=== PATIENT | female | born 1935 | race Caucasian/White ===

== ENCOUNTER → 2023-10-24 17:39 | Outpatient (REF) | payer MEDICARE, OTHER, SELFPAY | LOC: HWRAD 17:39 | PROVIDERS: ATTENDING PHYSICIAN Physician Assistant Medical | DX: R05.1 Acute cough (principal) | CPT/HCPCS: 71046 ==

== ENCOUNTER 2023-10-28 19:35 | Inpatient (IN) | payer MEDICARE, OTHER, SELFPAY ==
[2023-10-28] VITALS (11 sets, daily range): BP systolic 71–195; BP diastolic 46–120; BMI 25.2; BMI 25.0
[2023-10-28 14:41] LABS: COVID-19 Antigen Negative (Negative)
--- NOTE | 2023-10-28 15:54 | ED.GENMED ---
History of Present Illness
<Gladis Garcia BOOSTER ASSEMBLER - Last Filed: 10/28/23 18:35>
General
Chief Complaint: Cold/Flu/URI Symptoms
Source: patient and family (Daughter at bedside)
Exam Limitations: none
Time Seen by Provider: 10/28/23 15:52
Nursing documentation reviewed up to this point in time: agreed with
Travel History
Have you had any contact with someone who has COVID-19?: No
Do you have any symptoms of coronavirus? Fever > 100 degrees, chills, cough, shortness of breath, sore throat, loss of taste or smell, muscle aches, or headache?: No
History of Present Illness
History of Present Illness:
88-year-old female from home with her daughter who is visiting her pst 4 days. Patient states 'I've been sick since 10/16.' Her illness started with sneezing and a runny nose, she went to urgent care, told she had a sinus infection and was put on
cefprozil 500 mg twice daily x 10 days, tomorrow will be her last day. Patient states she felt no better and 4 days ago saw her PCP Nati Hsieh who gave her a Z-Thong which she finished this morning. Overnight 5 days into 4 days ago she stumbled
in her bathroom and fell with no reported injury.
Daughter at bedside states she is usually very sharp and clear but now she keeps saying she cannot get her brain to function. She had a mild cough for the past few days. She called her PCP who told her to come in for blood work, CAT scan and a
urine test.
Patient denies chest pain or trouble breathing. Denies abdominal pain. Denies nausea or vomiting. Appetite has been poor and she has to force up to eat but she states she has been drinking well.
Past History
<Gladis Garcia BOOSTER ASSEMBLER - Last Filed: 10/28/23 18:35>
Past History
ED Past Medical History: Hypercholesterolemia and Other (Open-angle glaucoma both eyes)
Social History
Tobacco: Non-smoker
Alcohol: None
Living: alone
Review of Systems
<Gladis Garcia, BOOSTER ASSEMBLER - Last Filed: 10/28/23 18:35>
Review of Systems
Allergies reviewed?: Yes
All Other Systems: ROS reviewed and negative except as documented in HPI and ROS
Constitutional: Reports fatigue; Denies fever
EENT: Denies sore throat
Respiratory: Reports cough (Mild intermittent past few days); Denies trouble breathing
Cardiac: Denies chest pain, diaphoresis, palpitations or syncope
ABD/GI: Reports anorexia; Denies abdominal pain, nausea, vomiting, diarrhea, constipated, bloody stools or black stools
: Denies dysuria, frequency, difficulty voiding or urgency
Musculoskeletal: Reports back pain (chronic left mid to low back pain, takes Tylenol daily, PCP aware); Denies edema
Skin: Reports no symptoms
Neurological: Reports no symptoms
Phy Exam
<Gladis Garcia, BOOSTER ASSEMBLER - Last Filed: 10/28/23 18:35>
Physical Exam
Physical Exam:
GENERAL: No acute distress. A&Ox3.
CONSTITUTIONAL: Afebrile.
EYES: PERRL, conjunctivae normal
Neck: Supple
ENMT: moist mucus membranes, Pharynx nl
RESPIRATORY: Regular respirations, nonlabored, lungs clear.
CARDIOVASCULAR: Regular rate and rhythm, no murmurs, no rubs.
GI: Soft, nontender, normal BS
MUSCULOSKELETAL: Moves with ease. Well perfused.
SKIN: Warm, dry, pink
PSYCH: Normal mood and affect. Well kept, interactive and appropriate
NEUROLOGIC: Awake, alert and oriented. Speech clear. Strength equal throughout. No focal neurological deficits
Course
<Gladis Garcia, BOOSTER ASSEMBLER - Last Filed: 10/28/23 18:35>
Orders/Labs/Results
Orders:
Orders
10/28/23 14:20
COVID-19 Antigen Urgent
Source: Nasal Swab
Monotest Urgent
Comment: ADD ON
Influenza A+B Rapid Molecular Urgent
DASH Source: Nasal Swab
Specimen Description:
10/28/23 16:08
CT Head W/o Iv Contrast Urgent
Comment:
Reason For Exam: confusion
0.9% Sodium Chloride 500 ml [Nss] 500 ml IV BOLUS
10/28/23 16:21
CBC/With Diff [Complete Blood Count/With Diff] Urgent
Comprehensive Metabolic Panel Urgent
Serum Osmolality Urgent
Comment: ADD ON
10/28/23 16:26
Add On- LAB Urgent
Tests Added?: Monotest
10/28/23 17:00
Osmolality, Random Urine Urgent
Date Specimen was Collected: 10/28/23
Time Specimen was Collected: 16:53
Comment: ADD ON
Urinalysis Reflex To Culture Urgent
Date Specimen was Collected: 10/28/23
Time Specimen was Collected: 16:53
Urine Microscopic Reflex Cult Urgent
Urine Sodium Urgent
Date Specimen was Collected: 10/28/23
Time Specimen was Collected: 16:53
Comment: ADD ON
10/28/23 17:22
Add On- LAB Urgent
Tests Added?: Serum osmolality, Urine osmolality, Urine sodium
10/28/23 17:28
NEPHROLOGY CONSULT Urgent
Consulting Provider: Scout Feng
Was physician already notified: Yes
Reason for consult: Hyponatremia
10/28/23 17:53
3% Sodium Chloride 250 ml [Sodium Chloride 3%] 250 ml IV ONCE
10/28/23 18:17
Potassium Chloride [KCl] 40 meq PO NOW STA
10/28/23 19:05
Admit/Transfer Patient As Directed
Co-Sign Provider:
Level of Care: Inpatient admission
Assign to:: Telemetry
Physician / Group: demetris
Diagnosis: hyponatremia
Reason for Telemetry: Arrhythmia
Date to Stop Telemetry: 10/31/23
Time to Stop Telemetry: 11:00
Reason for Hospitalization: hyponatremia
Expected length of stay greater than two midnights?: Yes
ELOS- Estimated Length of Stay in days: 2
I certify the patient meets the requirements for IP care: Yes
10/28/23 19:06
Code Status As Directed
Resuscitation Status: Do not resuscitate
Reached after discussion with pt or family/Healthcare POA: Yes
DNR Bracelet Application ONCE
10/28/23 22:00
Basic Metabolic Panel Routine
10/31/23 11:00
DC Protocol for Telemetry ONCE
Abnormal Lab Results
10/28/23 10/28/23
16:21 17:00
MCH 32.8 H pg
(27.0-31.0)
MCHC 37.1 H g/dL
(33.0-37.0)
Abs Immat Gran (auto) 0.1 H 10^3/uL
(0-0.05)
Absolute Monos (auto) 0.9 H 10^3/uL
(0.1-0.6)
Immature Gran % 0.6 H %
(0-0.5)
Lymphocytes % 18.3 L %
(20.5-51.1)
Monocytes % 10.0 H %
(1.7-9.3)
Sodium 113 L* mmol/L
(135-145)
Potassium 3.0 L mmol/L
(3.5-5.1)
Chloride 72 L mmol/L
(98-107)
Carbon Dioxide 33 H mmol/L
(22-30)
BUN 26 H mg/dl
(7-17)
Creatinine 0.5 L mg/dL
(0.6-1.0)
Glucose 108 H mg/dl
(70-99)
Serum Osmolality 242 L mOsm/kg
(275-300)
AST 37 H U/L
(14-36)
ALT 41 H U/L
(0-35)
Urine Ketones 1+ A
(Negative)
Ur Occult Blood Reflex Trace A
(Negative)
Leukocyte Esterase Rfl Trace A
(Negative)
Urine RBC 3-6 A /HPF
(0-2)
Urine Bacteria (Reflex) Few A
(Negative)
Urine Sodium 16 L mmol/L
(30-90)
10/28/23 16:21
10/28/23 16:21
Vital Signs
Initial and Last Documented VS:
Initial Vital Signs
Temp Pulse Resp BP Pulse Ox
98.3 F 73 18 165/99 96
10/28/23 14:05 10/28/23 14:05 10/28/23 14:05 10/28/23 14:05 10/28/23 14:05
Last Documented Vital Signs
Temp Pulse Resp BP Pulse Ox
98.3 F 76 14 109/70 95
10/28/23 14:05 10/28/23 20:15 10/28/23 20:15 10/28/23 19:26 10/28/23 20:15
Drying Supervisor consulted with Physician
Drying Supervisor consulted with physician?: Yes
Name of Physician Consulted: Nathalia
<Jerry Sloan, DO - Last Filed: 10/28/23 20:37>
Orders/Labs/Results
Orders:
Orders
10/28/23 14:20
COVID-19 Antigen Urgent
Source: Nasal Swab
Monotest Urgent
Comment: ADD ON
Influenza A+B Rapid Molecular Urgent
DASH Source: Nasal Swab
Specimen Description:
10/28/23 16:08
CT Head W/o Iv Contrast Urgent
Comment:
Reason For Exam: confusion
0.9% Sodium Chloride 500 ml [Nss] 500 ml IV BOLUS
10/28/23 16:21
CBC/With Diff [Complete Blood Count/With Diff] Urgent
Comprehensive Metabolic Panel Urgent
Serum Osmolality Urgent
Comment: ADD ON
10/28/23 16:26
Add On- LAB Urgent
Tests Added?: Monotest
10/28/23 17:00
Osmolality, Random Urine Urgent
Date Specimen was Collected: 10/28/23
Time Specimen was Collected: 16:53
Comment: ADD ON
Urinalysis Reflex To Culture Urgent
Date Specimen was Collected: 10/28/23
Time Specimen was Collected: 16:53
Urine Microscopic Reflex Cult Urgent
Urine Sodium Urgent
Date Specimen was Collected: 10/28/23
Time Specimen was Collected: 16:53
Comment: ADD ON
10/28/23 17:22
Add On- LAB Urgent
Tests Added?: Serum osmolality, Urine osmolality, Urine sodium
10/28/23 17:28
NEPHROLOGY CONSULT Urgent
Consulting Provider: Scout Feng
Was physician already notified: Yes
Reason for consult: Hyponatremia
10/28/23 17:53
3% Sodium Chloride 250 ml [Sodium Chloride 3%] 250 ml IV ONCE
10/28/23 18:17
Potassium Chloride [KCl] 40 meq PO NOW STA
10/28/23 19:05
Admit/Transfer Patient As Directed
Co-Sign Provider:
Level of Care: Inpatient admission
Assign to:: Telemetry
Physician / Group: demetris
Diagnosis: hyponatremia
Reason for Telemetry: Arrhythmia
Date to Stop Telemetry: 10/31/23
Time to Stop Telemetry: 11:00
Reason for Hospitalization: hyponatremia
Expected length of stay greater than two midnights?: Yes
ELOS- Estimated Length of Stay in days: 2
I certify the patient meets the requirements for IP care: Yes
10/28/23 19:06
Code Status As Directed
Resuscitation Status: Do not resuscitate
Reached after discussion with pt or family/Healthcare POA: Yes
DNR Bracelet Application ONCE
10/28/23 22:00
Basic Metabolic Panel Routine
10/31/23 11:00
DC Protocol for Telemetry ONCE
Abnormal Lab Results
10/28/23 10/28/23
16:21 17:00
MCH 32.8 H pg
(27.0-31.0)
MCHC 37.1 H g/dL
(33.0-37.0)
Abs Immat Gran (auto) 0.1 H 10^3/uL
(0-0.05)
Absolute Monos (auto) 0.9 H 10^3/uL
(0.1-0.6)
Immature Gran % 0.6 H %
(0-0.5)
Lymphocytes % 18.3 L %
(20.5-51.1)
Monocytes % 10.0 H %
(1.7-9.3)
Sodium 113 L* mmol/L
(135-145)
Potassium 3.0 L mmol/L
(3.5-5.1)
Chloride 72 L mmol/L
(98-107)
Carbon Dioxide 33 H mmol/L
(22-30)
BUN 26 H mg/dl
(7-17)
Creatinine 0.5 L mg/dL
(0.6-1.0)
Glucose 108 H mg/dl
(70-99)
Serum Osmolality 242 L mOsm/kg
(275-300)
AST 37 H U/L
(14-36)
ALT 41 H U/L
(0-35)
Urine Ketones 1+ A
(Negative)
Ur Occult Blood Reflex Trace A
(Negative)
Leukocyte Esterase Rfl Trace A
(Negative)
Urine RBC 3-6 A /HPF
(0-2)
Urine Bacteria (Reflex) Few A
(Negative)
Urine Sodium 16 L mmol/L
(30-90)
10/28/23 16:21
10/28/23 16:21
Vital Signs
Initial and Last Documented VS:
Initial Vital Signs
Temp Pulse Resp BP Pulse Ox
98.3 F 73 18 165/99 96
10/28/23 14:05 10/28/23 14:05 10/28/23 14:05 10/28/23 14:05 10/28/23 14:05
Last Documented Vital Signs
Temp Pulse Resp BP Pulse Ox
98.3 F 76 14 109/70 95
10/28/23 14:05 10/28/23 20:15 10/28/23 20:15 10/28/23 19:26 10/28/23 20:15
<Gladis Garcia, BOOSTER ASSEMBLER - Last Filed: 10/28/23 18:35>
MDM/Problems Addressed
Differential Diagnosis Includes:
Dehydration, UTI, viral illness, dementia
MDM/Problems Addressed:
88-year-old female from home with her daughter who is visiting her pst 4 days. Patient states 'I've been sick since 10/16.' Her illness started with sneezing and a runny nose, she went to urgent care, told she had a sinus infection and was put on
cefprozil 500 mg twice daily x 10 days, tomorrow will be her last day. Patient states she felt no better and 4 days ago saw her PCP Nati Hsieh who gave her a Z-Thong which she finished this morning. Overnight 5 days into 4 days ago she stumbled
in her bathroom and fell with no reported injury.
Daughter at bedside states she is usually very sharp and clear but now she keeps saying she cannot get her brain to function. She had a mild cough for the past few days. She called her PCP who told her to come in for blood work, CAT scan and a
urine test.
Reviewed out pt CXR from 10/24: NAD
Patient denies chest pain or trouble breathing. Denies abdominal pain. Denies nausea or vomiting. Appetite has been poor and she has to force up to eat but she states she has been drinking well.
Afebrile
10/28/2023 1624 PM
COVID test negative
Influenza negative
10/28/2023 1716 PM
CBC with no clinically significant abnormality
CMP: Sodium is 113. Potassium 3.0, chloride 72, BUN 26, bicarb 33
U/A neg
10/28/[address] Feng nephrology consulted and will be down
Hospitalist notified of admission
Results discussed with patient and her daughter.
<Gladis Garcia, BOOSTER ASSEMBLER - Last Filed: 10/28/23 18:35>
*Critical Care Note
Total Time (30-74mins, 75-104mins- exclusive of procedures): Not Applicable
ED Attending Note
<Gladis Garcia, BOOSTER ASSEMBLER - Last Filed: 10/28/23 18:35>
-
Portions of this chart may have been created with voice recognition software.� Occasional wrong word or��sound alike� substitutions may have occurred due to the inherent limitations of voice recognition software.
<Jerry Sloan DO - Last Filed: 10/28/23 20:37>
ED Attending Note
I performed the substantive portion of visit, reviewed & personally made and approve the management plan that is documented in note by myself or RAYMOND.: Yes
ED Attending Note:
I have reviewed and agree with history and treatment plan by Celsa garcia. Patient received 3% normal saline. Seen by Dr. Feng, nephrology.
Discharge Plan
Departure
Patient Disposition: Admit
Date of Disposition: 10/28/23
Time of Disposition: 17:29
Admit to: ICU
Presentation/result/management discussed w/ accepting MD/DO: Hospitalist
Condition: Fair
Discharge Problem:
Acute hyponatremia
Interventions
Interventions:
*Risk Screen - Suicide Last Done: 10/28/23 14:08
*General Assessment Last Done: 10/28/23 14:08
*Neglect/Abuse Screening Last Done: 10/28/23 14:08
ED- Fall Risk Assessment Last Done: 10/28/23 16:29
*ED COVID-19 Vaccine History Last Done: 10/28/23 14:08
ED- Pulmonary Assessment Last Done: 10/28/23 16:29
[2023-10-28] MEDS: NSS 500 IV ×2 (16:21→20:52)
[2023-10-28 16:37] LABS: % Basophils 0.1 % (0-2); % Eosinophils 0.7 % (0-6); % Immature Granulocytes 0.6 % (0-0.5); % Lymphocytes 18.3 % (20.5-51.1); % Neutrophils 70.3 % (42.2-75.2); Absolute Eosinophils 0.1 10^3/uL (0-0.7); Absolute Immature Granulocytes 0.1 10^3/uL (0-0.05); Absolute Lymphocytes 1.7 10^3/uL (1.2-3.4); Absolute Monocytes 0.9 10^3/uL (0.1-0.6); Absolute Neutrophils 6.3 10^3/uL (1.4-6.5); Hematocrit 39.1 % (37.0-47.0); Hemoglobin 14.5 g/dL (12.0-16.0); Mean Corp Hgb Conc. 37.1 g/dL (33.0-37.0); Mean Corpuscular Hgb 32.8 pg (27.0-31.0); Mean Corpuscular Volume 88.5 fL (81.0-99.0); Mean Platelet Volume 10.2 fL (7.4-10.4); Nucleated Red Blood Cells % 0 %; Platelet Count 143 10^3/uL (130-400); Red Blood Cell Count 4.42 10^6/uL (4.20-5.40); Red Cell Dist. Width 12.7 % (11.5-14.5)
[2023-10-28 16:51] LABS: ALT (SGPT) 41 U/L (0-35); AST (SGOT) 37 U/L (14-36); Albumin 4.1 g/dl (3.5-5.0); Alkaline Phosphatase 105 U/L (38-126); Blood Urea Nitrogen 26 mg/dl (7-17); Calcium 9.2 mg/dl (8.4-10.2); Carbon Dioxide 33 mmol/L (22-30); Chloride 72 mmol/L (98-107); Estimated Creatinine Clearance 50 ml/min; Glucose 108 mg/dl (70-99); Sodium 113 mmol/L (135-145); Total Protein 7.2 g/dl (6.3-8.2); eGFR > 60.00
[2023-10-28 17:08] LABS: Urine Albumin Negative (Neg - Trace); Urine Bilirubin Negative (Negative); Urine Character Clear (Clear); Urine Color Yellow; Urine Glucose Negative (Negative); Urine Ketone 1+ (Negative); Urine Leukocyte Trace (Negative); Urine Nitrite Negative (Negative); Urine Occult Blood Trace (Negative); Urine Urobilinogen Negative (Neg - 1+)
[2023-10-28 17:24] LABS: Urine Bacteria Few (Negative)
[2023-10-28 17:47] LABS: Osmolality Urine 333 mOsm/kg (300-900)
--- NOTE | 2023-10-28 17:47 | W.CON.NEPH ---
Consultation
-
Date/Time Consultation Requested: October 28, 2023 1700
Date/Time Consultation Performed: October 28, 2023 1748
Requesting Provider: Dr. Hernandez
Performing Provider: Dr. Feng
Reason for Consultation: hyponatremia
Medical History
-
Chief Complaint: Hyponatremia
History of Present Illness:
88-year-old female with hyperlipidemia on statin therapy who has not felt well since October 16. This began with upper respiratory symptoms including a runny nose as well as sneezing. She went to an urgent care clinic was diagnosed with a sinus
infection and placed on antibiotics. She had not improved and so saw her primary care physician 4 days ago and was given a Z-Thong. She still has not improved. She fell in her bathroom recently. Her daughter became more concerned because her
mental status began to flag. As result, she was sent to the emergency room for evaluation here she was found to have a sodium level of 113. She seems to have a mild hyponatremia in the past though typically above 130. Her appetite has been poor
as well during this timeframe though she reports that her fluid intake has been fine.
Past Medical History
Hyperlipidemia, glaucoma, osteoporosis, cataracts, tonsillectomy, bilateral hip replacement, left lower leg vein stripping, right distal radial fracture.
Social History
No tobacco or alcohol.
Tobacco: Non-Smoker
Alcohol: None
Family History
Throat cancer in father, lung cancer as well as cervical cancer in sisters.
Allergies / Home Medications
Allergy/AdvReac Type Severity Reaction Status Date / Time
naproxen sodium [From Aleve] Allergy Facial Verified 10/28/23 14:04
Swelling
Environmental Allergy runny Uncoded 07/18/16 08:13
nose,
sneezing
Medication Instructions Recorded Confirmed Type
atorvastatin 10 mg tablet 10 mg PO QPM 12/01/15 10/28/23 History
calcium carbonate 600 mg-vitamin 1 ea PO DAILY 12/01/15 10/28/23 History
D3 10 mcg (400 unit) tablet
(Calcium 600 + D(3))
acetaminophen 500 mg tablet 1,000 mg PO Q6H 06/20/16 10/28/23 History
(Tylenol Extra Strength)
vitamin E (dl, acetate) 180 mg 400 units PO DAILY 06/20/16 10/28/23 History
(400 unit) capsule
docusate sodium 100 mg capsule 100 mg PO BID ##0 07/20/16 10/28/23 Rx
cefprozil 500 mg tablet 500 mg PO BID 10/28/23 10/28/23 History
cranberry 400 mg capsule 800 mg PO BID 10/28/23 10/28/23 History
ginkgo biloba 40 mg tablet 40 mg PO DAILY 10/28/23 10/28/23 History
glucosamine-chondroitin 250 mg-200 1 tab PO DAILY 10/28/23 10/28/23 History
mg tablet (Osteo Bi-Flex)
latanoprostene bunod 0.024 % eye 1 drp BOTH EYES QPM 10/28/23 10/28/23 History
drops (Vyzulta)
loratadine 10 mg tablet 10 mg PO HSPRN PRN ALLERGY 10/28/23 10/28/23 History
multivitamin with minerals 1 tab PO DAILY 10/28/23 10/28/23 History
(Hair,Skin and Nails tablet)
therapeutic multivitamin 1 tab PO DAILY 10/28/23 10/28/23 History
Review of Systems
-
No chest pain or shortness of breath. Appetite slowly improving. No issues with urine output. Sinus issues as above. The remainder of the complete review of systems was negative.
Physical Exam
Vital Signs
Vital Signs
Temp Pulse Resp BP Pulse Ox
98.3 F 73 18 158/98 100
10/28/23 14:05 10/28/23 14:05 10/28/23 14:05 10/28/23 17:07 10/28/23 17:07
Lab Results
WBC 9.0 10^3/uL (4.8-10.8) 10/28/23 16:21
RBC 4.42 10^6/uL (4.20-5.40) 10/28/23 16:21
Hgb 14.5 g/dL (12.0-16.0) 10/28/23 16:21
Hct 39.1 % (37.0-47.0) 10/28/23 16:21
Plt Count 143 10^3/uL (130-400) 10/28/23 16:21
Sodium 113 mmol/L (135-145) L* 10/28/23 16:21
Potassium 3.0 mmol/L (3.5-5.1) L 10/28/23 16:21
Chloride 72 mmol/L (98-107) L 10/28/23 16:21
Carbon Dioxide 33 mmol/L (22-30) H 10/28/23 16:21
BUN 26 mg/dl (7-17) H 10/28/23 16:21
Creatinine 0.5 mg/dL (0.6-1.0) L 10/28/23 16:21
eGFR > 60.00 10/28/23 16:21
Glucose 108 mg/dl (70-99) H 10/28/23 16:21
Calcium 9.2 mg/dl (8.4-10.2) 10/28/23 16:21
Albumin 4.1 g/dl (3.5-5.0) 10/28/23 16:21
Physical Exam
General: AOx3
HEENT: PERRL, EOMI, Oropharynx Clear/Moist, Neck Supple, Trachea Midline and No Thyromegaly
Respiratory: Clear
Abdomen: Soft, Nontender, Nondistended, Normal Bowel Sounds and No Hepatosplenomegaly
Skin: No Rash and Normal Turgor
Psych: Mood/afflect pleasant and Insight/judgement good
Assessment/Plan
-
Assessment
-hyponatremia
-hyperlipidemia
-HTN
-hypokalemia
-metabolic alkalosis
-URI
Plan
-3%NaCl tonight
-serial BMP
-await urine studies
-suspect this will be infection + solute/solvent mismatch
-replete K
-d/w pt and her two daughters (one on phone)
Data Reviewed
-
Radiology: Image Personally Visualized and interpreted (Chest x-ray on 10/24/2023 by my reading shows no active disease)
Labs: Labs Reviewed by me
Old Records: Reviewed (On September 05, 2023 sodium 132, on November 29, 2020 sodium 132)
[2023-10-28 17:57] LABS: Urine Sodium 16 mmol/L (30-90)
[2023-10-28] MEDS: SODIUM CHLORIDE 3% 250 IV (18:10)
--- NOTE | 2023-10-28 18:10 | HPS.HSE ---
Family Physician
-
Family Physician: Nati Hsieh PA-C
Chief Complaint
-
confusion
History of Present Illness
88-year-old female with past medical history of osteoarthritis, hyperlipidemia, glaucoma, presenting from home with her daughter. Patient states that she has been sick since 10/16. Her illness started with cough, sneezing and runny nose and went to
urgent care and told she had a sinus infection and was started on cefprozil for 10 days, tomorrow will be her last day. She felt no better in 4 days ago saw her primary care physician Nati Hsieh who gave her a Z-Thong which she finished this
morning. Her respiratory symptoms are currently improved. Cough is very intermittent. Runny nose has improved. 5 days ago she stumbled in her bathroom and fell with bruising to right hip.
Daughter states that patient is usually very sharp and clear but now her brain has since been confuse.she has been off balance. No numbness or tingling. No headache or blurry vision. Her primary care physician told her to come into the hospital.
No history of hyponatremia. She has been drinking 2-1/2 quart of fluids every day without much salt intake
Patient denies any chest pain or shortness of breath. Denies any abdominal pain. Denies any nausea or vomiting. Appetite has been poor but she has been drinking well.
Medical History
Past Medical History
Past Medical History: Reports Other (osteoarthritis, hyperlipidemia, glaucoma)
Past Surgical History: Reports None
Social History
Tobacco: Non-smoker
Alcohol: None
Drug: None
Family History
Family History: Not pertinent
Allergies / Home Medications
Allergies reflects when Allergies were last updated in [facility].
Home Medications with original date entered in [facility]
Allergy/Medication List:
Allergies
Allergy/AdvReac Type Severity Reaction Status Date / Time
naproxen sodium [From Aleve] Allergy Facial Verified 10/28/23 14:04
Swelling
Environmental Allergy runny Uncoded 07/18/16 08:13
nose,
sneezing
Home Medications
atorvastatin 10 mg tablet 10 mg PO QPM 12/01/15
calcium carbonate 600 mg-vitamin D3 10 mcg (400 unit) tablet (Calcium 600 + D(3)) 1 ea PO DAILY 12/01/15
acetaminophen 500 mg tablet (Tylenol Extra Strength) 1,000 mg PO Q6H 06/20/16
vitamin E (dl, acetate) 180 mg (400 unit) capsule 400 units PO DAILY 06/20/16
docusate sodium 100 mg capsule 100 mg PO BID ##0 07/20/16
cefprozil 500 mg tablet 500 mg PO BID 10/28/23
cranberry 400 mg capsule 800 mg PO BID 10/28/23
ginkgo biloba 40 mg tablet 40 mg PO DAILY 10/28/23
glucosamine-chondroitin 250 mg-200 mg tablet (Osteo Bi-Flex) 1 tab PO DAILY 10/28/23
latanoprostene bunod 0.024 % eye drops (Vyzulta) 1 drp BOTH EYES QPM 10/28/23
loratadine 10 mg tablet 10 mg PO HSPRN PRN ALLERGY 10/28/23
multivitamin with minerals (Hair,Skin and Nails tablet) 1 tab PO DAILY 10/28/23
therapeutic multivitamin 1 tab PO DAILY 10/28/23
Review of Systems
-
History Source: Patient
A 12 point ROS was completed and negative except as noted: Yes
Constitutional: Reports No Symptoms
EENT: Reports No Symptoms
Respiratory: Reports See HPI
Cardiac: Reports No Symptoms
Abdomen/GI: Reports No Symptoms
: Reports No Symptoms
Musculoskeletal: Reports No Symptoms
Skin: Reports No Symptoms
Neurological: Reports No Symptoms
Endocrine: Reports No Symptoms
Hematologic/Lymphatic: Reports No Symptoms
Psych: Reports No Symptoms
Physical Exam
Vital Signs
Vital Signs
Temp Pulse Resp BP Pulse Ox
98.3 F 73 18 158/98 100
10/28/23 14:05 10/28/23 14:05 10/28/23 14:05 10/28/23 17:07 10/28/23 17:07
Physical Exam
General: Well Developed, Well Nourished and No Apparent Distress
HEENT: NormoCephalic, Moist mucous membranes and Atraumatic
Respiratory: Clear
Cardiac: S1/S2 and Regular Rhythm; No Murmur or Rub
GI: Soft, Non Tender, Non Distended and Normal Bowel Sounds; No Organomegaly
Rectal: Deferred by Provider
Musculoskeletal: No Clubbing, No Cyanosis and No Edema
Skin: No Rash
Neuro: Nonfocal/grossly intact
Laboratory Results
-
10/28/23 16:21
Laboratory Results
Total Bilirubin 1.0 mg/dl (0.2-1.3) 10/28/23 16:21
AST 37 U/L (14-36) H 10/28/23 16:21
ALT 41 U/L (0-35) H 10/28/23 16:21
Alkaline Phosphatase 105 U/L (38-126) 10/28/23 16:21
Data Reviewed
-
Lab Data: Labs Reviewed by me
Old Records: Reviewed
Impression/Plan
-
IMPRESSION:
PLAN:
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
-Check urine sodium, osmolality,
-CT head no acute abnormality
-3% hypertonic saline
-Nephrology consulted
# Resolving URI
-Last day of cefprozil tomorrow
# Hypokalemia
- replete potassium
# Mild transaminitis likely due to antibiotic
-Continue to monitor
Osteoarthritis
Hyperlipidemia
-Continue statin
Glaucoma
DNR/DNI
DVT prophylaxis�heparin
Regular diet
[2023-10-28 18:11] LABS: Osmolality Serum 242 mOsm/kg (275-300)
[2023-10-28] MEDS: KCL 40 MEQ PO (19:00)
[2023-10-28 20:55] LABS: Monotest Negative (Negative)
[2023-10-28 22:09] LABS: Blood Urea Nitrogen 23 mg/dl (7-17); Calcium 7.6 mg/dl (8.4-10.2); Carbon Dioxide 28 mmol/L (22-30); Chloride 80 mmol/L (98-107); Estimated Creatinine Clearance 50 ml/min; Glucose 74 mg/dl (70-99); Potassium 3.2 mmol/L (3.5-5.1); Sodium 115 mmol/L (135-145); eGFR > 60.00
--- NOTE | 2023-10-28 22:48 | PTCARENOTE ---
Received pt from ED RN. Pt walked from the stretcher w/ RW to our bed. Pt is AAOx3, confused @ times. NSR on the monitor. On RA O2 sat 96%, lungs clear. BRP x1 assist, abd round/soft, poor appetite. Bruise on right hip, from previous fall at home.
3% infusing @ 20 ml/hr. Bed alarm in place. CHG bath provided. Pt is laying comfortable in bed with call briscoe in reach.
[2023-10-28] MEDS: TYLENOL 1000 MG PO (23:07)
[2023-10-28] MEDS: CEFTIN 500 MG PO (23:07)
[2023-10-28] MEDS: COLACE 100 MG PO (23:08)
[2023-10-28] MEDS: HEPARIN 5000 UNITS SC (23:08)
[2023-10-29] VITALS (12 sets, daily range): BP systolic 93–133; BP diastolic 58–82
[2023-10-29] MEDS: TYLENOL 1000 MG PO ×3 (04:14→21:44)
[2023-10-29 05:09] LABS: ALT (SGPT) 37 U/L (0-35); AST (SGOT) 39 U/L (14-36); Albumin 3.6 g/dl (3.5-5.0); Alkaline Phosphatase 85 U/L (38-126); Blood Urea Nitrogen 20 mg/dl (7-17); Calcium 8.3 mg/dl (8.4-10.2); Carbon Dioxide 26 mmol/L (22-30); Chloride 91 mmol/L (98-107); Estimated Creatinine Clearance 50 ml/min; Glucose 88 mg/dl (70-99); Potassium 3.6 mmol/L (3.5-5.1); Sodium 119 mmol/L (135-145); Total Bilirubin 1.1 mg/dl (0.2-1.3); Total Protein 6.4 g/dl (6.3-8.2); eGFR > 60.00
[2023-10-29 06:07] LABS: % Basophils 0.4 % (0-2); % Eosinophils 1.1 % (0-6); % Immature Granulocytes 0.7 % (0-0.5); % Lymphocytes 26.6 % (20.5-51.1); % Neutrophils 62.2 % (42.2-75.2); Absolute Eosinophils 0.1 10^3/uL (0-0.7); Absolute Immature Granulocytes 0.1 10^3/uL (0-0.05); Absolute Lymphocytes 1.9 10^3/uL (1.2-3.4); Absolute Monocytes 0.6 10^3/uL (0.1-0.6); Absolute Neutrophils 4.4 10^3/uL (1.4-6.5); Hematocrit 36.4 % (37.0-47.0); Hemoglobin 13.7 g/dL (12.0-16.0); Mean Corp Hgb Conc. 37.6 g/dL (33.0-37.0); Mean Corpuscular Hgb 32.8 pg (27.0-31.0); Mean Corpuscular Volume 87.1 fL (81.0-99.0); Nucleated Red Blood Cells % 0 %; Platelet Count 141 10^3/uL (130-400); Red Blood Cell Count 4.18 10^6/uL (4.20-5.40); Red Cell Dist. Width 12.6 % (11.5-14.5); White Blood Cell Count 7.1 10^3/uL (4.8-10.8)
[2023-10-29] MEDS: OSCAL 500 + D 500 MG PO (08:19)
[2023-10-29] MEDS: VITAMIN E 400 UNITS PO (08:19)
[2023-10-29] MEDS: CEFTIN 500 MG PO ×2 (08:19→20:08)
[2023-10-29] MEDS: COLACE 100 MG PO (08:20)
[2023-10-29] MEDS: HEPARIN 5000 UNITS SC ×2 (08:20→20:08)
[2023-10-29] MEDS: THERAGRAN 1 TABLET PO (08:20)
--- NOTE | 2023-10-29 11:52 | W.PN.NEPH.PH ---
Today's Communication / Plan
-
3%
Assessment/Plan
-
Assessment
-hyponatremia
-hyperlipidemia
-HTN
-hypokalemia
-metabolic alkalosis
-URI
Plan
-3%NaCl again
-serial BMP
-replete K prn
-
-
Date of Service: October 29, 2023
CC / HPI / ROS
-
Chief Complaint:
hyponatremia
History of Present Illness:
Na up to 119 with 3%
BP stable
K better after repletion 3.6
Review of Systems:
no CP/SOB
Labs
-
Labs:
WBC 7.1 10^3/uL (4.8-10.8) 10/29/23 04:25
RBC 4.18 10^6/uL (4.20-5.40) L 10/29/23 04:25
Hgb 13.7 g/dL (12.0-16.0) 10/29/23 04:25
Hct 36.4 % (37.0-47.0) L 10/29/23 04:25
Plt Count 141 10^3/uL (130-400) 10/29/23 04:25
Sodium 119 mmol/L (135-145) L* 10/29/23 04:25
Potassium 3.6 mmol/L (3.5-5.1) 10/29/23 04:25
Chloride 91 mmol/L (98-107) L 10/29/23 04:25
Carbon Dioxide 26 mmol/L (22-30) 10/29/23 04:25
BUN 20 mg/dl (7-17) H 10/29/23 04:25
Creatinine 0.5 mg/dL (0.6-1.0) L 10/29/23 04:25
eGFR > 60.00 10/29/23 04:25
Glucose 88 mg/dl (70-99) 10/29/23 04:25
Calcium 8.3 mg/dl (8.4-10.2) L 10/29/23 04:25
Albumin 3.6 g/dl (3.5-5.0) 10/29/23 04:25
Physical Exam
-
Vital Signs:
Vital Signs
Temp Pulse Resp BP Pulse Ox
97.8 F 62 14 128/74 97
10/29/23 08:00 10/29/23 06:00 10/29/23 06:00 10/29/23 06:00 10/29/23 06:00
Cardiovascular:: Regular rate and rhythm
Respiratory:: Bilateral: Coarse
Lung Excursion:: Normal
Abdomen:: Nontender and Soft
Bowel Sounds:: Normal
Extremity Edema:: +1: Bilateral:
--- NOTE | 2023-10-29 12:01 | CM ---
Cm met with pt bedside
[place] in [place] apartment at [facility]
Pt notes independence at baseline typically without a WW
Has been needing to utilize her WW prior to admission
Pt has hx with [facility]
PCP- Nati Hsieh
Rx- Lola Anguiano
Pt in IMU
TT/Dr Howard requesting PT/OT orders as weakness noted
Discharge Disposition- home likely with [facility]N, follow for higher needs
[2023-10-29] MEDS: ZOSTRIX 0.025% CREAM 1 APPLIC TOPICAL (12:34)
[2023-10-29] MEDS: SODIUM CHLORIDE 3% 250 IV (12:57)
[2023-10-29] MEDS: TYLENOL PO (16:49)
[2023-10-29 16:56] LABS: Blood Urea Nitrogen 23 mg/dl (7-17); Calcium 8.5 mg/dl (8.4-10.2); Carbon Dioxide 31 mmol/L (22-30); Chloride 88 mmol/L (98-107); Estimated Creatinine Clearance 50 ml/min; Glucose 88 mg/dl (70-99); Potassium 3.4 mmol/L (3.5-5.1); Sodium 122 mmol/L (135-145); eGFR > 60.00
--- NOTE | 2023-10-29 17:14 | PTCARENOTE ---
Rec'd pt this AM. OOB x1 assist to the bathroom. Vital signs stable. Sodium slowly rising with 3% NS infusion. Dr. Feng updated via TT on most recent labs. family at bedside.
--- NOTE | 2023-10-29 17:27 | W.PN.HOSP.TC ---
Today's Communication/Plan
-
follow BMP
stop Ceftin
Assessment / Plan
Assessment / Plan
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
confusion, noted on admission, markedly reduced
-Check urine sodium, osmolality,
-CT head no acute abnormality
-3% hypertonic saline ordered again today by nephro
-Nephrology consulted
Na 113-->115-->119-->122
# Resolving URI
-Last day of cefuroxime today
# Hypokalemia
- replete potassium
better
# Mild transaminitis likely due to antibiotic
-Continue to monitor
Osteoarthritis
Hyperlipidemia
-Continue statin
Glaucoma
DNR/DNI
DVT prophylaxis�heparin
Regular diet
potential transfer [facility] tomorrow based on Na
Anticipated Discharge: 24 - 48 hours
Subjective/Interval History
-
Date of Service: October 29, 2023
Awake, alert, answering questions
Objective Data
-
Labs:
Laboratory Results
10/29/23 10/29/23
04:25 16:29
WBC 7.1
Hgb 13.7
Hct 36.4 L
Plt Count 141
Sodium 122 L
Potassium 3.4 L
Chloride 88 L
Carbon Dioxide 31 H
BUN 23 H
Creatinine 0.6
Glucose 88
Calcium 8.5
Vital Signs:
Vital Signs
Temp Pulse Resp BP Pulse Ox
98.1 F 82 11 110/69 95
10/29/23 15:30 10/29/23 16:00 10/29/23 16:00 10/29/23 16:00 10/29/23 12:00
I&O
10/28/23 10/29/23 10/30/23
06:59 06:59 06:59
Intake Total 640 / 640
Balance 640 / 640
Review of Systems
-
History Source: Patient and Coordinated Provider
Constitutional: Denies Fever
EENT: Reports No Symptoms Reported
Respiratory: Reports No Symptoms
Cardiac: Reports No Symptoms
Abdomen/GI: Reports No Symptoms
Physical Exam
-
General: Well Developed, Well Nourished and No Apparent Distress
HEENT: Normocephalic, Atraumatic and Moist Mucous Membranes
Respiratory: Clear to Auscultation; Negative Wheezes, Rales or Rhonchi
Cardiac: Regular Rhythm and S1/S2
GI: Nontender and Nondistended
Musculoskeletal: No Clubbing, No Cyanosis and No Edema
Neuro: Awake, Alert and Oriented
[2023-10-29] MEDS: LIPITOR 10 MG PO (18:41)
[2023-10-29] MEDS: COLACE PO (20:10)
--- NOTE | 2023-10-29 20:59 | PTCARENOTE ---
Received pt from frankie RN. 3% infusing @ 20ml/hr. OOB x1 to BR. Daughter @ bedside. VSS. Mouth care provided. Pt is laying comfortable in bed with call briscoe in reach.
[2023-10-29] MEDS: MELATONIN 3 MG PO (21:45)
[2023-10-30] VITALS (11 sets, daily range): BP systolic 95–157; BP diastolic 49–101; PULSE 98; O2SAT 94–95
[2023-10-30] MEDS: TYLENOL 1000 MG PO ×4 (03:21→21:08)
[2023-10-30 04:02] LABS: Blood Urea Nitrogen 16 mg/dl (7-17); Calcium 8.4 mg/dl (8.4-10.2); Carbon Dioxide 31 mmol/L (22-30); Chloride 92 mmol/L (98-107); Estimated Creatinine Clearance 50 ml/min; Glucose 85 mg/dl (70-99); Potassium 3.2 mmol/L (3.5-5.1); Sodium 126 mmol/L (135-145); eGFR > 60.00
[2023-10-30] MEDS: KCL 40 MEQ PO ×2 (05:42→12:36)
[2023-10-30] MEDS: HEPARIN 5000 UNITS SC ×2 (08:22→20:36)
[2023-10-30] MEDS: THERAGRAN 1 TABLET PO (08:22)
[2023-10-30] MEDS: VITAMIN E 400 UNITS PO (08:22)
[2023-10-30] MEDS: COLACE 100 MG PO (08:22)
[2023-10-30] MEDS: OSCAL 500 + D 500 MG PO (08:22)
--- NOTE | 2023-10-30 13:52 | W.PN.NEPH.PH ---
Today's Communication / Plan
-
follow labs
see plan
Assessment/Plan
-
Assessment
-hyponatremia
-hyperlipidemia
-HTN
-hypokalemia
-metabolic alkalosis
-URI
Plan
sodium improving to 126 today
repeat labs if decreasing likely try samsca vs 3%
BP are improving , po intake is better
maintain FR 40ounces/day
check TSH in am
-replete K prn
-
-
Date of Service: October 30, 2023
CC / HPI / ROS
-
Chief Complaint:
hyponatremia
History of Present Illness:
Na up to 126with 3%
BP stable
K low at 3.2
Review of Systems:
no CP/SOB
eating well today
Labs
-
Labs:
WBC 7.1 10^3/uL (4.8-10.8) 10/29/23 04:25
RBC 4.18 10^6/uL (4.20-5.40) L 10/29/23 04:25
Hgb 13.7 g/dL (12.0-16.0) 10/29/23 04:25
Hct 36.4 % (37.0-47.0) L 10/29/23 04:25
Plt Count 141 10^3/uL (130-400) 10/29/23 04:25
Potassium 3.2 mmol/L (3.5-5.1) L 10/30/23 03:20
Chloride 92 mmol/L (98-107) L 10/30/23 03:20
Carbon Dioxide 31 mmol/L (22-30) H 10/30/23 03:20
BUN 16 mg/dl (7-17) 10/30/23 03:20
Creatinine 0.5 mg/dL (0.6-1.0) L 10/30/23 03:20
eGFR > 60.00 10/30/23 03:20
Glucose 85 mg/dl (70-99) 10/30/23 03:20
Calcium 8.4 mg/dl (8.4-10.2) 10/30/23 03:20
Albumin 3.6 g/dl (3.5-5.0) 10/29/23 04:25
Physical Exam
-
Vital Signs:
Vital Signs
Temp Pulse Resp BP Pulse Ox
98.0 F 88 26 157/91 98
10/30/23 07:15 10/30/23 06:00 10/30/23 06:00 10/30/23 06:00 10/30/23 09:23
Cardiovascular:: Regular rate and rhythm
Respiratory:: Bilateral: CTA
Lung Excursion:: Normal
Abdomen:: Nontender and Soft
Extremity Edema:: None: Bilateral:
Tavarez Catheter: No
--- NOTE | 2023-10-30 15:50 | PTCARENOTE ---
Rec'd pt this AM. Pt downgraded to med surg. OOB with PT walking in halls with rolling walker. vital signs stable.
--- NOTE | 2023-10-30 16:26 | W.PN.HOSP.TC ---
Today's Communication/Plan
-
await 3pm na levels and follow renal recs
back pain imaging
tx MS floor
Assessment / Plan
Assessment / Plan
Assessment:
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
- TME with confusion, now improving
- s/p 3% saline, repeat Na pending to determine further 3% saline vs Samsca
- Nephrology following
Chronic Left upper back pain
- check C/T spine xrays and L scapula Xray
Resolving URI
- complete Ceftin course
Hypokalemia - replete prn
Mild transaminitis likely due to antibiotic
- continue to monitor
Osteoarthritis
Hyperlipidemia
- continue statin
Glaucoma
DVT ppx: SC heparin
Code: DNR/DNI
Anticipated Discharge: 24 - 48 hours
Subjective/Interval History
-
Date of Service: October 30, 2023
reports back pain, L paraspinal near scapula, reports chronic with periodic flares
Objective Data
-
Labs:
Laboratory Results
10/30/23
15:31
Sodium Pending
Vital Signs:
Vital Signs
Temp Pulse Resp BP Pulse Ox
98.0 F 78 15 95/69 98
10/30/23 07:15 10/30/23 12:00 10/30/23 12:00 10/30/23 10:00 10/30/23 09:23
I&O
10/29/23 10/30/23 10/31/23
06:59 06:59 06:59
Intake Total 640 / 640 650 / 650 480 / 480
Balance 640 / 640 650 / 650 480 / 480
Physical Exam
-
General: Well Developed and Well Nourished
HEENT: Normocephalic and Atraumatic
Respiratory: Negative Wheezes or Rales
Cardiac: Regular Rhythm and S1/S2
GI: Soft
Genito-urinary: No Costovertebral Tender
Musculoskeletal: No Edema
Neuro: AO x 3
Hematologic / Lymphatic: No Lymphadenopathy
Psych: Calm
Data Reviewed
-
Total Time Spent with Patient (in minutes): 45
Labs: Labs Reviewed by me
[2023-10-30 16:30] LABS: Sodium 125 mmol/L (135-145)
[2023-10-30] MEDS: LIPITOR 10 MG PO (17:29)
[2023-10-30] MEDS: SODIUM CHLORIDE 3% 250 IV (17:29)
--- NOTE | 2023-10-30 18:52 | PTCARENOTE ---
Pt transferred to 411-2. 3% NS started at 1730 with 25ml infused. Pt IV snagged when getting into wheelchair for transport. Pt transported with IV clamped. 4 Kevin RN noted IV infiltrated upon arrival. Reviewed time infusion started and issue with
IV snag on transfer to wheelchair.
--- NOTE | 2023-10-30 20:22 | PTCARENOTE ---
Received pt from IMU.Report from Kelin SAAVEDRA. Pt awake, alert and oriented x3. Pt has no c/o pain at this time, was experiencing back pain on and off throughout day. VSS 96% on RA. Pt 3% sodium off at time of arrival, IV infiltrated, IVT called new
IV placed and 3% Na resumed at ordered rate of 25ml/hr. Pt oriented to room, call briscoe within reach, plan of care ongoing.
[2023-10-30] MEDS: COLACE PO (20:36)
[2023-10-30 21:43] LABS: Sodium 125 mmol/L (135-145)
[2023-10-31] MEDS: TYLENOL 1000 MG PO ×4 (04:08→21:13)
[2023-10-31 07:00] VITALS: BP 147/81
[2023-10-31 08:52] LABS: Blood Urea Nitrogen 12 mg/dl (7-17); Calcium 8.3 mg/dl (8.4-10.2); Carbon Dioxide 28 mmol/L (22-30); Chloride 97 mmol/L (98-107); Estimated Creatinine Clearance 50 ml/min; Glucose 80 mg/dl (70-99); Potassium 3.8 mmol/L (3.5-5.1); Sodium 127 mmol/L (135-145); eGFR > 60.00
[2023-10-31 09:36] LABS: TSH Reflex To Free T4 2.16 uIU/ml (0.47-4.68)
[2023-10-31] MEDS: COLACE 100 MG PO (09:36)
[2023-10-31] MEDS: HEPARIN 5000 UNITS SC ×2 (09:36→21:13)
[2023-10-31] MEDS: VITAMIN E 400 UNITS PO (09:37)
[2023-10-31] MEDS: OSCAL 500 + D 500 MG PO (09:37)
[2023-10-31] MEDS: THERAGRAN 1 TABLET PO (09:37)
--- NOTE | 2023-10-31 10:01 | CM ---
Patient seen bedside. CM disussed PT recommendation of home health, patient is agreeable and requesting referral to [facility], TT sent to [facility] nurse Davey. Patient reports when she returns home, her daughter will be staying with her, who is also a nurse.
IMM reviewed, signed, placed in patients chart. Patient reports her daughter will provide transportation home upon discharge. CM will continue to follow for discharge planning needs.
Plan; home with [facility] pending acceptance.
--- NOTE | 2023-10-31 10:18 | W.PN.HOSP.TC ---
Today's Communication/Plan
-
await Renal recs re: Na
pain control
Assessment / Plan
Assessment / Plan
Assessment:
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
- TME with confusion, now improving
- s/p 3% saline x multiple bags, repeat Na 127
- Nephrology following
Chronic Left upper back pain
- C/T spine: Multilevel cervical spine degenerative disc disease, Multilevel mild degenerative disc disease throughout the thoracic spine
- Scapula XR: Mild AC joint and glenohumeral joint osteoarthritis
- prn Tylenol and Lidocaine cream
Resolving URI
- completed Ceftin course
Hypokalemia - replete prn
Mild transaminitis likely due to antibiotic
- continue to monitor
Osteoarthritis
Hyperlipidemia
- continue statin
Glaucoma
DVT ppx: SC heparin
Code: DNR/DNI
Anticipated Discharge: 24 - 48 hours
Subjective/Interval History
-
Date of Service: October 31, 2023
no complaints, back pain tolerable
Na 127
Objective Data
-
Labs:
Laboratory Results
10/31/23
07:36
Sodium 127 L
Potassium 3.8
Chloride 97 L
Carbon Dioxide 28
BUN 12
Creatinine 0.4 L
Glucose 80
Calcium 8.3 L
Vital Signs:
Vital Signs
Temp Pulse Resp BP Pulse Ox
97.8 F 83 18 147/81 99
10/31/23 07:00 10/31/23 07:00 10/31/23 07:00 10/31/23 07:00 10/31/23 07:00
I&O
10/30/23 10/31/23 11/01/23
06:59 06:59 06:59
Intake Total 650 / 650 960 / 960
Balance 650 / 650 960 / 960
Physical Exam
-
General: No Apparent Distress
HEENT: Normocephalic and Atraumatic
Respiratory: Negative Wheezes or Rales
Cardiac: Regular Rhythm and S1/S2
GI: Soft
Genito-urinary: No Costovertebral Tender
Musculoskeletal: No Edema
Neuro: AO x 3
Psych: Calm
Data Reviewed
-
Total Time Spent with Patient (in minutes): 41
Labs: Labs Reviewed by me
[2023-10-31] MEDS: LMX 4 1 APPLIC TOPICAL (11:15)
[2023-10-31 15:00] VITALS: BP 145/82
[2023-10-31 15:21] VITALS: BP 137/80; PULSE 88; O2SAT 97
--- NOTE | 2023-10-31 16:30 | W.PN.NEPH.PH ---
Today's Communication / Plan
-
sasmca
check UA to r/o UTI-pt thinks has one
Assessment/Plan
-
Assessment
-hyponatremia
-hyperlipidemia
-HTN
-hypokalemia
-metabolic alkalosis
-URI
Plan
sodium only minimal improvement to 127 s/p 3% saline
now that BPs are stable, try samsca
maintain FR 40ounces/day
normal TSH
labs in am
-
-
Date of Service: October 31, 2023
CC / HPI / ROS
-
Chief Complaint:
hyponatremia
History of Present Illness:
Na up to 127 with 3%
BP stable
K normal
Review of Systems:
no CP/SOB
eating well today
thinks may have UTI, increased U frequency had h/o UTI
Labs
-
Labs:
WBC 7.1 10^3/uL (4.8-10.8) 10/29/23 04:25
RBC 4.18 10^6/uL (4.20-5.40) L 10/29/23 04:25
Hgb 13.7 g/dL (12.0-16.0) 10/29/23 04:25
Hct 36.4 % (37.0-47.0) L 10/29/23 04:25
Plt Count 141 10^3/uL (130-400) 10/29/23 04:25
Sodium 127 mmol/L (135-145) L 10/31/23 07:36
Potassium 3.8 mmol/L (3.5-5.1) 10/31/23 07:36
Chloride 97 mmol/L (98-107) L 10/31/23 07:36
Carbon Dioxide 28 mmol/L (22-30) 10/31/23 07:36
BUN 12 mg/dl (7-17) 10/31/23 07:36
Creatinine 0.4 mg/dL (0.6-1.0) L 10/31/23 07:36
eGFR > 60.00 10/31/23 07:36
Glucose 80 mg/dl (70-99) 10/31/23 07:36
Calcium 8.3 mg/dl (8.4-10.2) L 10/31/23 07:36
Albumin 3.6 g/dl (3.5-5.0) 10/29/23 04:25
Physical Exam
-
Vital Signs:
Vital Signs
Temp Pulse Resp BP Pulse Ox
97.8 F 83 18 147/81 96
10/31/23 07:00 10/31/23 07:00 10/31/23 07:00 10/31/23 07:00 10/31/23 08:40
Cardiovascular:: Regular rate and rhythm
Respiratory:: Bilateral: CTA
Lung Excursion:: Normal
Abdomen:: Nontender and Soft
Extremity Edema:: None: Bilateral:
Tavarez Catheter: No
[2023-10-31 17:10] LABS: Urine Albumin Negative (Neg - Trace); Urine Bilirubin Negative (Negative); Urine Character Clear (Clear); Urine Color Yellow; Urine Glucose 1+ (Negative); Urine Ketone Negative (Negative); Urine Leukocyte Trace (Negative); Urine Nitrite Negative (Negative); Urine Occult Blood 1+ (Negative); Urine Specific Gravity 1.015 (<1.030); Urine Urobilinogen Negative (Neg - 1+)
[2023-10-31] MEDS: LIPITOR 10 MG PO (17:36)
[2023-10-31] MEDS: SAMSCA 15 MG PO (17:36)
[2023-10-31] MEDS: STERILE WATER FOR INJECTION 10 ML IV (17:37)
[2023-10-31] MEDS: ROCEPHIN 1000 MG IV (17:37)
[2023-10-31] MEDS: LIDOCAINE 4% PATCH 1 PATCH TOPICAL (17:37)
[2023-10-31] MEDS: COLACE PO (21:14)
[2023-10-31 23:47] VITALS: BP 153/97
[2023-11-01] MEDS: TYLENOL 1000 MG PO ×4 (03:29→21:04)
[2023-11-01 08:00] VITALS: BP 148/98
[2023-11-01 08:22] LABS: Blood Urea Nitrogen 12 mg/dl (7-17); Calcium 9.3 mg/dl (8.4-10.2); Carbon Dioxide 35 mmol/L (22-30); Chloride 96 mmol/L (98-107); Estimated Creatinine Clearance 50 ml/min; Glucose 92 mg/dl (70-99); Potassium 3.9 mmol/L (3.5-5.1); Sodium 134 mmol/L (135-145); eGFR > 60.00
[2023-11-01] MEDS: COLACE PO ×2 (09:18→21:04)
[2023-11-01] MEDS: LIDOCAINE 4% PATCH 1 PATCH TOPICAL (09:18)
[2023-11-01] MEDS: HEPARIN 5000 UNITS SC ×2 (09:19→21:04)
[2023-11-01] MEDS: VITAMIN E 400 UNITS PO (09:19)
[2023-11-01] MEDS: THERAGRAN 1 TABLET PO (09:19)
[2023-11-01] MEDS: OSCAL 500 + D 500 MG PO (09:19)
--- NOTE | 2023-11-01 11:41 | W.PN.HOSP.TC ---
Today's Communication/Plan
-
follow renal recs
Rocephin pending cultures
Assessment / Plan
Assessment / Plan
Assessment:
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
- TME with confusion, now improving
- s/p 3% saline x multiple bags, repeat Na 134
- Nephrology following
Chronic Left upper back pain
- C/T spine: Multilevel cervical spine degenerative disc disease, Multilevel mild degenerative disc disease throughout the thoracic spine
- Scapula XR: Mild AC joint and glenohumeral joint osteoarthritis
- prn Tylenol and Lidocaine cream
Possible UTI
- Rocephin day 2, pending culture
Resolving URI
- completed Ceftin course
Hypokalemia - replete prn
Mild transaminitis likely due to antibiotic
- continue to monitor
Osteoarthritis
Hyperlipidemia
- continue statin
Glaucoma
DVT ppx: SC heparin
Code: DNR/DNI
Anticipated Discharge: Within 24 hours
Subjective/Interval History
-
Date of Service: November 01, 2023
no complaints
Na 134 this AM
Objective Data
-
Labs:
Laboratory Results
11/01/23
07:25
Sodium 134 L
Potassium 3.9
Chloride 96 L
Carbon Dioxide 35 H
BUN 12
Creatinine 0.5 L
Glucose 92
Calcium 9.3
Vital Signs:
Vital Signs
Temp Pulse Resp BP Pulse Ox
97.5 F 89 16 148/98 98
11/01/23 08:00 11/01/23 08:00 11/01/23 08:00 11/01/23 08:00 11/01/23 08:40
I&O
10/31/23 11/01/23 11/02/23
06:59 06:59 06:59
Intake Total 960 / 960 1380 / 1380
Balance 960 / 960 1380 / 1380
Physical Exam
-
General: No Apparent Distress
HEENT: Normocephalic and Atraumatic
Respiratory: Negative Wheezes or Rales
Cardiac: Regular Rhythm and S1/S2
GI: Soft
Genito-urinary: No Costovertebral Tender
Neuro: AO x 3
Hematologic / Lymphatic: No Lymphadenopathy
Psych: Calm
Data Reviewed
-
Total Time Spent with Patient (in minutes): 42
Labs: Labs Reviewed by me
--- NOTE | 2023-11-01 12:22 | W.PN.NEPH.PH ---
Today's Communication / Plan
-
lasix
Assessment/Plan
-
Assessment
-hyponatremia
-hyperlipidemia
-HTN
-hypokalemia
-metabolic alkalosis
-URI
Plan
FR 40
follow BMP
lasix 10mg daily
await Ucx
-
-
Date of Service: November 01, 2023
CC / HPI / ROS
-
Chief Complaint:
hyponatremia
History of Present Illness:
Na up to 134 with samsca
BP stable
K normal
Review of Systems:
no CP/SOB
eating well today
thinks may have UTI
Labs
-
Labs:
WBC 7.1 10^3/uL (4.8-10.8) 10/29/23 04:25
RBC 4.18 10^6/uL (4.20-5.40) L 10/29/23 04:25
Hgb 13.7 g/dL (12.0-16.0) 10/29/23 04:25
Hct 36.4 % (37.0-47.0) L 10/29/23 04:25
Plt Count 141 10^3/uL (130-400) 10/29/23 04:25
Sodium 134 mmol/L (135-145) L 11/01/23 07:25
Potassium 3.9 mmol/L (3.5-5.1) 11/01/23 07:25
Chloride 96 mmol/L (98-107) L 11/01/23 07:25
Carbon Dioxide 35 mmol/L (22-30) H 11/01/23 07:25
BUN 12 mg/dl (7-17) 11/01/23 07:25
Creatinine 0.5 mg/dL (0.6-1.0) L 11/01/23 07:25
eGFR > 60.00 11/01/23 07:25
Glucose 92 mg/dl (70-99) 11/01/23 07:25
Calcium 9.3 mg/dl (8.4-10.2) 11/01/23 07:25
Albumin 3.6 g/dl (3.5-5.0) 10/29/23 04:25
Physical Exam
-
Vital Signs:
Vital Signs
Temp Pulse Resp BP Pulse Ox
97.5 F 89 16 148/98 98
11/01/23 08:00 11/01/23 08:00 11/01/23 08:00 11/01/23 08:00 11/01/23 08:40
Cardiovascular:: Regular rate and rhythm
Respiratory:: Bilateral: Coarse
Lung Excursion:: Normal
Abdomen:: Nontender and Soft
Bowel Sounds:: Normal
Extremity Edema:: None: Bilateral:
[2023-11-01] MEDS: LASIX 10 MG PO (13:29)
[2023-11-01 13:34] VITALS: BP 166/97
--- NOTE | 2023-11-01 13:43 | VNURNOTE ---
Home Health Liaison met with patient an swapnil Celeste at 1200 to discuss [facility] nurse/therapy, visits, schedule and homebound status. Patient is agreeable and understands that visits at home will be 2-3 x per week to assess and teach medical
management.
[facility] brochure provided with contact information. Patient is aware that [facility] will contact her for start of care in 1-2 days after discharge from .
[facility] referral completed in [facility].
--- NOTE | 2023-11-01 15:09 | CM ---
Chart reviewed
Cultures pend, remains on IV abx
Renal following
Plan - anticipate home with [facility]
[2023-11-01 16:00] VITALS: BP 76/47
[2023-11-01 16:30] VITALS: BP 90/60
--- NOTE | 2023-11-01 16:30 | PTCARENOTE ---
At 1600 patient OOB to chair. BP checked 76/47. Patient asymptomatic. Assisted back to bed. Recheck BP half hour later- 90/60. Dr Carey made aware. No new orders given. Will continue to monitor.
[2023-11-01] MEDS: ROCEPHIN 1000 MG IV (17:19)
[2023-11-01] MEDS: LIPITOR 10 MG PO (17:19)
[2023-11-01] MEDS: STERILE WATER FOR INJECTION 10 ML IV (17:20)
[2023-11-01 20:00] VITALS: BP 110/72
[2023-11-01] MEDS: ZANAFLEX 2 MG PO (23:30)
[2023-11-01 23:55] VITALS: BP 131/80
[2023-11-01] MEDS: ZOSTRIX 0.025% CREAM 1 APPLIC TOPICAL (23:57)
[2023-11-02] MEDS: TYLENOL 1000 MG PO ×4 (04:44→21:58)
[2023-11-02] MEDS: ZOSTRIX 0.025% CREAM 1 APPLIC TOPICAL ×3 (07:22→20:05)
[2023-11-02 07:58] VITALS: BP 117/70
[2023-11-02] MEDS: LIDOCAINE 4% PATCH 1 PATCH TOPICAL (08:51)
[2023-11-02] MEDS: OSCAL 500 + D 500 MG PO (08:52)
[2023-11-02] MEDS: HEPARIN 5000 UNITS SC ×2 (08:52→20:04)
[2023-11-02] MEDS: VITAMIN E 400 UNITS PO (08:52)
[2023-11-02] MEDS: THERAGRAN 1 TABLET PO (08:52)
[2023-11-02] MEDS: LASIX 10 MG PO (08:52)
[2023-11-02] MEDS: COLACE 100 MG PO (08:52)
[2023-11-02 09:22] LABS: Blood Urea Nitrogen 18 mg/dl (7-17); Carbon Dioxide 32 mmol/L (22-30); Chloride 91 mmol/L (98-107); Estimated Creatinine Clearance 50 ml/min; Glucose 88 mg/dl (70-99); Potassium 3.6 mmol/L (3.5-5.1); Sodium 132 mmol/L (135-145); eGFR > 60.00
[2023-11-02 10:12] VITALS: BP 95/59
--- NOTE | 2023-11-02 10:14 | W.PN.HOSP.TC ---
Today's Communication/Plan
-
start midodrine 2.5mg bid, assess response
Assessment / Plan
Assessment / Plan
Assessment:
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
- TME with confusion, now improving
- s/p 3% saline x multiple bags, repeat Na 134
- Lasix 10mg daily per Nephrology
Orthostatic hypotension
- start midodrine 2.5mg BID - assess response
Chronic Left upper back pain
- C/T spine: Multilevel cervical spine degenerative disc disease, Multilevel mild degenerative disc disease throughout the thoracic spine
- Scapula XR: Mild AC joint and glenohumeral joint osteoarthritis
- prn Tylenol and Lidocaine cream
Possible UTI
- Ucx negative, Rocephin stopped
Resolving URI
- completed Ceftin course
Hypokalemia - replete prn
Mild transaminitis likely due to antibiotic
- continue to monitor
Osteoarthritis
Hyperlipidemia
- continue statin
Glaucoma
DVT ppx: SC heparin
Code: DNR/DNI
Anticipated Discharge: Within 24 hours
Subjective/Interval History
-
Date of Service: November 02, 2023
no complaints this morning,
has periods of transient hypotension asymptomatic in 90s
Objective Data
-
Labs:
Laboratory Results
11/02/23
07:15
Sodium 132 L
Potassium 3.6
Chloride 91 L
Carbon Dioxide 32 H
BUN 18 H
Creatinine 0.5 L
Glucose 88
Calcium 9.0
Vital Signs:
Vital Signs
Temp Pulse Resp BP Pulse Ox
98 F 93 18 95/59 97
11/02/23 07:58 11/02/23 10:12 11/02/23 07:58 11/02/23 10:12 11/02/23 07:58
I&O
11/01/23 11/02/23 11/03/23
06:59 06:59 06:59
Intake Total 1380 / 1380
Balance 1380 / 1380
Physical Exam
-
General: No Apparent Distress
HEENT: Normocephalic and Atraumatic
Respiratory: Negative Wheezes or Rales
Cardiac: Regular Rhythm and S1/S2
GI: Soft
Genito-urinary: No Costovertebral Tender
Musculoskeletal: No Edema
Neuro: AO x 3
Hematologic / Lymphatic: No Lymphadenopathy
Psych: Calm
Data Reviewed
-
Total Time Spent with Patient (in minutes): 42
Labs: Labs Reviewed by me
[2023-11-02] MEDS: ProAmatine 2.5 MG PO (10:45)
--- NOTE | 2023-11-02 11:20 | W.PN.NEPH.PH ---
Today's Communication / Plan
-
follow BMP
Assessment/Plan
-
Assessment
-hyponatremia
-hyperlipidemia
-HTN
-hypokalemia
-metabolic alkalosis
-URI
Plan
FR 40
follow BMP
lasix 10mg daily
compression stockings/TEDS
now on midodrine
-
-
Date of Service: November 02, 2023
CC / HPI / ROS
-
Chief Complaint:
hyponatremia
History of Present Illness:
Na 132 stable
BP low this am
K normal
Review of Systems:
no CP/SOB
Labs
-
Labs:
WBC 7.1 10^3/uL (4.8-10.8) 10/29/23 04:25
RBC 4.18 10^6/uL (4.20-5.40) L 10/29/23 04:25
Hgb 13.7 g/dL (12.0-16.0) 10/29/23 04:25
Hct 36.4 % (37.0-47.0) L 10/29/23 04:25
Plt Count 141 10^3/uL (130-400) 10/29/23 04:25
Sodium 132 mmol/L (135-145) L 11/02/23 07:15
Potassium 3.6 mmol/L (3.5-5.1) 11/02/23 07:15
Chloride 91 mmol/L (98-107) L 11/02/23 07:15
Carbon Dioxide 32 mmol/L (22-30) H 11/02/23 07:15
BUN 18 mg/dl (7-17) H 11/02/23 07:15
Creatinine 0.5 mg/dL (0.6-1.0) L 11/02/23 07:15
eGFR > 60.00 11/02/23 07:15
Glucose 88 mg/dl (70-99) 11/02/23 07:15
Calcium 9.0 mg/dl (8.4-10.2) 11/02/23 07:15
Albumin 3.6 g/dl (3.5-5.0) 10/29/23 04:25
Physical Exam
-
Vital Signs:
Vital Signs
Temp Pulse Resp BP Pulse Ox
98 F 93 18 95/59 97
11/02/23 07:58 11/02/23 10:45 11/02/23 07:58 11/02/23 10:45 11/02/23 07:58
Cardiovascular:: Regular rate and rhythm
Respiratory:: Bilateral: Coarse
Lung Excursion:: Normal
Abdomen:: Nontender and Soft
Bowel Sounds:: Normal
Extremity Edema:: None: Bilateral:
--- NOTE | 2023-11-02 11:24 | CM ---
manager global communications reviewed patient's chart and spoke with patient and daughter Roula at bedside, patient, patient did well with PT and is currently ambulating 220 feet supervision, plan is for patient to return to [facility] with visiting nurses,
patient has selected [facility].
Plan; Home to [facility] with [facility].
[2023-11-02 11:43] VITALS: BP 143/80
[2023-11-02 15:33] VITALS: BP 124/71
[2023-11-02] MEDS: ROCEPHIN 1000 MG IV (17:08)
[2023-11-02] MEDS: STERILE WATER FOR INJECTION 10 ML IV (17:08)
[2023-11-02] MEDS: LIPITOR 10 MG PO (17:08)
[2023-11-02] MEDS: ProAmatine PO (17:14)
[2023-11-02] MEDS: ZANAFLEX 2 MG PO (20:05)
[2023-11-02] MEDS: COLACE PO (20:07)
[2023-11-02 23:50] VITALS: BP 115/67
[2023-11-03] MEDS: TYLENOL 1000 MG PO ×3 (04:23→23:12)
[2023-11-03] MEDS: ZANAFLEX 2 MG PO (04:24)
[2023-11-03] MEDS: ZOSTRIX 0.025% CREAM 1 APPLIC TOPICAL ×2 (04:24→20:38)
[2023-11-03 07:16] VITALS: BP 121/75
[2023-11-03 08:29] LABS: Blood Urea Nitrogen 19 mg/dl (7-17); Calcium 8.7 mg/dl (8.4-10.2); Carbon Dioxide 31 mmol/L (22-30); Chloride 95 mmol/L (98-107); Estimated Creatinine Clearance 50 ml/min; Glucose 87 mg/dl (70-99); Potassium 4.1 mmol/L (3.5-5.1); Sodium 131 mmol/L (135-145); eGFR > 60.00
[2023-11-03] MEDS: LIDOCAINE 4% PATCH 1 PATCH TOPICAL (08:43)
[2023-11-03] MEDS: VITAMIN E 400 UNITS PO (08:43)
[2023-11-03] MEDS: HEPARIN 5000 UNITS SC ×2 (08:43→20:27)
[2023-11-03] MEDS: OSCAL 500 + D 500 MG PO (08:43)
[2023-11-03] MEDS: THERAGRAN 1 TABLET PO (08:43)
[2023-11-03] MEDS: COLACE 100 MG PO ×2 (08:43→20:27)
[2023-11-03] MEDS: LASIX 10 MG PO (08:45)
[2023-11-03] MEDS: ProAmatine PO ×2 (08:45→17:20)
[2023-11-03] MEDS: TYLENOL PO (09:45)
--- NOTE | 2023-11-03 11:34 | W.PN.HOSP.TC ---
Today's Communication/Plan
-
add salt tabs; repeat BMP in AM
Assessment / Plan
Assessment / Plan
Assessment:
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
- TME with confusion, now improving
- s/p 3% saline x multiple bags
- Lasix 10mg daily per Nephrology
- Na 131 today; Sodium chloride 1gm BID added; repeat BMP in AM
Orthostatic hypotension
- continue midodrine 2.5mg BID with parameters
Chronic Left upper back pain
- C/T spine: Multilevel cervical spine degenerative disc disease, Multilevel mild degenerative disc disease throughout the thoracic spine
- Scapula XR: Mild AC joint and glenohumeral joint osteoarthritis
- prn Tylenol and Lidocaine cream
Possible UTI
- Ucx negative
Resolving URI
- completed Ceftin course
Hypokalemia - replete prn
Mild transaminitis likely due to antibiotic
- continue to monitor
Osteoarthritis
Hyperlipidemia
- continue statin
Glaucoma
DVT ppx: SC heparin
Code: DNR/DNI
Anticipated Discharge: Within 24 hours
Subjective/Interval History
-
Date of Service: November 03, 2023
Na 131, no dizziness or confusion
Objective Data
-
Labs:
Laboratory Results
11/03/23
06:56
Sodium 131 L
Potassium 4.1
Chloride 95 L
Carbon Dioxide 31 H
BUN 19 H
Creatinine 0.5 L
Glucose 87
Calcium 8.7
Vital Signs:
Vital Signs
Temp Pulse Resp BP Pulse Ox
97.9 F 74 16 121/75 94
11/03/23 07:16 11/03/23 08:45 11/03/23 07:16 11/03/23 08:45 11/03/23 07:16
I&O
11/02/23 11/03/23 11/04/23
06:59 06:59 06:59
Intake Total 660 / 660
Balance 660 / 660
Physical Exam
-
General: No Apparent Distress
HEENT: Normocephalic and Atraumatic
Respiratory: Negative Wheezes or Rales
Cardiac: Regular Rhythm and S1/S2
GI: Soft
Musculoskeletal: No Edema
Neuro: AO x 3
Psych: Calm
Data Reviewed
-
Total Time Spent with Patient (in minutes): 41
Labs: Labs Reviewed by me
[2023-11-03 11:40] VITALS: BP 134/90
[2023-11-03] MEDS: SODIUM CHLORIDE 1 GRAM PO ×2 (13:13→20:26)
--- NOTE | 2023-11-03 15:20 | W.PN.NEPH.PH ---
Today's Communication / Plan
-
Salt
Assessment/Plan
-
Assessment
-hyponatremia
-hyperlipidemia
-HTN
-hypokalemia
-metabolic alkalosis
-URI
Plan
FR 40
follow BMP
lasix 10mg daily
compression stockings/TEDS
now on midodrine
Add sodium chloride 500 mg twice daily. Wean midodrine as allowed
-
-
Date of Service: November 03, 2023
CC / HPI / ROS
-
Chief Complaint:
hyponatremia
History of Present Illness:
Na 131
BP low this am
K normal
Review of Systems:
no CP/SOB
Labs
-
Labs:
WBC 7.1 10^3/uL (4.8-10.8) 10/29/23 04:25
RBC 4.18 10^6/uL (4.20-5.40) L 10/29/23 04:25
Hgb 13.7 g/dL (12.0-16.0) 10/29/23 04:25
Hct 36.4 % (37.0-47.0) L 10/29/23 04:25
Plt Count 141 10^3/uL (130-400) 10/29/23 04:25
Sodium 131 mmol/L (135-145) L 11/03/23 06:56
Potassium 4.1 mmol/L (3.5-5.1) 11/03/23 06:56
Chloride 95 mmol/L (98-107) L 11/03/23 06:56
Carbon Dioxide 31 mmol/L (22-30) H 11/03/23 06:56
BUN 19 mg/dl (7-17) H 11/03/23 06:56
Creatinine 0.5 mg/dL (0.6-1.0) L 11/03/23 06:56
eGFR > 60.00 11/03/23 06:56
Glucose 87 mg/dl (70-99) 11/03/23 06:56
Calcium 8.7 mg/dl (8.4-10.2) 11/03/23 06:56
Albumin 3.6 g/dl (3.5-5.0) 10/29/23 04:25
Physical Exam
-
Vital Signs:
Vital Signs
Temp Pulse Resp BP Pulse Ox
97.9 F 83 16 134/90 94
11/03/23 07:16 11/03/23 11:40 11/03/23 07:16 11/03/23 11:40 11/03/23 07:16
Cardiovascular:: Regular rate and rhythm
Respiratory:: Bilateral: Coarse
Lung Excursion:: Normal
Abdomen:: Nontender and Soft
Bowel Sounds:: Normal
Extremity Edema:: None: Bilateral:
[2023-11-03 16:00] VITALS: BP 112/71
[2023-11-03] MEDS: LIPITOR 10 MG PO (17:21)
[2023-11-03] MEDS: CLARITIN 10 MG PO (20:38)
[2023-11-03 23:03] VITALS: BP 144/87
[2023-11-04] MEDS: TYLENOL 1000 MG PO ×2 (04:21→10:06)
[2023-11-04 07:25] VITALS: BP 147/91
[2023-11-04] MEDS: ProAmatine PO (08:40)
[2023-11-04] MEDS: VITAMIN E 400 UNITS PO (08:43)
[2023-11-04 08:44] LABS: Blood Urea Nitrogen 21 mg/dl (7-17); Calcium 9.1 mg/dl (8.4-10.2); Carbon Dioxide 30 mmol/L (22-30); Chloride 95 mmol/L (98-107); Estimated Creatinine Clearance 50 ml/min; Glucose 127 mg/dl (70-99); Potassium 4.4 mmol/L (3.5-5.1); Sodium 133 mmol/L (135-145); eGFR > 60.00
[2023-11-04] MEDS: HEPARIN 5000 UNITS SC (08:44)
[2023-11-04] MEDS: SODIUM CHLORIDE 1 GRAM PO (08:44)
[2023-11-04] MEDS: LASIX 10 MG PO (08:44)
[2023-11-04] MEDS: COLACE 100 MG PO (08:45)
[2023-11-04] MEDS: LIDOCAINE 4% PATCH 1 PATCH TOPICAL (08:45)
[2023-11-04] MEDS: THERAGRAN 1 TABLET PO (08:45)
[2023-11-04] MEDS: OSCAL 500 + D 500 MG PO (08:45)
[2023-11-04] MEDS: ZANAFLEX 2 MG PO (12:04)
[2023-11-04] MEDS: CLARITIN 10 MG PO (12:39)
--- NOTE | 2023-11-04 13:44 | W.PN.NEPH.PH ---
Today's Communication / Plan
-
d/c today
continue salt tabs and lasix as outpatient
Assessment/Plan
-
Assessment
-hyponatremia
-hyperlipidemia
-HTN
-hypokalemia
-metabolic alkalosis
-URI
Plan
FR 40
follow BMP
lasix 10mg daily, can continue as outpatient
compression stockings/TEDS
Add sodium chloride 500 mg twice daily.
Stoppped midodrine
Ok for d/c from nephrology perspective. please have her obtain follow up labs in 2 weeks. If Na is stable, no need for follow up with nephrology
-
-
Date of Service: November 04, 2023
CC / HPI / ROS
-
Chief Complaint:
hyponatremia
History of Present Illness:
Na 133
BP low this am
K normal
Review of Systems:
no CP/SOB
Labs
-
Labs:
WBC 7.1 10^3/uL (4.8-10.8) 10/29/23 04:25
RBC 4.18 10^6/uL (4.20-5.40) L 10/29/23 04:25
Hgb 13.7 g/dL (12.0-16.0) 10/29/23 04:25
Hct 36.4 % (37.0-47.0) L 10/29/23 04:25
Plt Count 141 10^3/uL (130-400) 10/29/23 04:25
Sodium 133 mmol/L (135-145) L 11/04/23 07:34
Potassium 4.4 mmol/L (3.5-5.1) 11/04/23 07:34
Chloride 95 mmol/L (98-107) L 11/04/23 07:34
Carbon Dioxide 30 mmol/L (22-30) 11/04/23 07:34
BUN 21 mg/dl (7-17) H 11/04/23 07:34
Creatinine 0.5 mg/dL (0.6-1.0) L 11/04/23 07:34
eGFR > 60.00 11/04/23 07:34
Glucose 127 mg/dl (70-99) H 11/04/23 07:34
Calcium 9.1 mg/dl (8.4-10.2) 11/04/23 07:34
Albumin 3.6 g/dl (3.5-5.0) 10/29/23 04:25
Physical Exam
-
Vital Signs:
Vital Signs
Temp Pulse Resp BP Pulse Ox
98.2 F 99 18 147/91 96
11/04/23 07:25 11/04/23 08:44 11/04/23 07:25 11/04/23 08:44 11/04/23 07:25
Cardiovascular:: Regular rate and rhythm
Respiratory:: Bilateral: CTA
Lung Excursion:: Normal
Abdomen:: Nontender and Soft
Bowel Sounds:: Normal
Extremity Edema:: +2: Bilateral:
Tavarez Catheter: No
--- NOTE | 2023-11-04 14:00 | W.PN.HOSP.TC ---
Addendum entered and electronically signed by Deng Howard MD 11/04/23 14:53:
dgt is concerned that pt should have Midodrine in case notes low BP at outpt. Will order as per her request
Original Note:
Today's Communication/Plan
-
dc today
Assessment / Plan
Assessment / Plan
Assessment:
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
- TME with confusion, now approaching baseline mentation
- s/p 3% saline x multiple bags
- Lasix 10mg daily per Nephrology
- Na 133 today; Sodium chloride 1gm BID added;
Orthostatic hypotension
- stop midodrine 2.5mg BID, as per nephro
Chronic Left upper back pain
- C/T spine: Multilevel cervical spine degenerative disc disease, Multilevel mild degenerative disc disease throughout the thoracic spine
- Scapula XR: Mild AC joint and glenohumeral joint osteoarthritis
- prn Tylenol and Lidocaine cream
Possible UTI
- Ucx negative
Resolving URI
- completed Ceftin course
Hypokalemia - resolved
Mild transaminitis likely due to antibiotic
- recheck post dc
Osteoarthritis
Hyperlipidemia
- continue statin
Glaucoma
DVT ppx: SC heparin
Code: DNR/DNI
reviewed with giovani, Roula, extensively
More than 30 minutes spent in discharge including
Final examination of the patient
Summarizing hospital stay
Instructions for continuing care to all relevant caregivers
Preparation of discharge records, prescriptions, and referral forms
Total time spent (in minutes): 45
Anticipated Discharge: Today
Subjective/Interval History
-
Date of Service: November 04, 2023
Feels well, alert and conversant
Objective Data
-
Labs:
Laboratory Results
11/04/23
07:34
Sodium 133 L
Potassium 4.4
Chloride 95 L
Carbon Dioxide 30
BUN 21 H
Creatinine 0.5 L
Glucose 127 H
Calcium 9.1
Vital Signs:
Vital Signs
Temp Pulse Resp BP Pulse Ox
98.2 F 99 18 147/91 96
11/04/23 07:25 11/04/23 08:44 11/04/23 07:25 11/04/23 08:44 11/04/23 07:25
I&O
11/03/23 11/04/23 11/05/23
06:59 06:59 06:59
Intake Total 660 / 660 1050 / 1050
Balance 660 / 660 1050 / 1050
Review of Systems
-
History Source: Patient and Coordinated Provider
Constitutional: Denies Fever
EENT: Reports No Symptoms Reported
Respiratory: Reports No Symptoms
Cardiac: Reports No Symptoms
Abdomen/GI: Reports No Symptoms
Musculoskeletal: Reports No Symptoms
Neuro: Reports No Symptoms
Physical Exam
-
General: Well Developed, Well Nourished and No Apparent Distress
HEENT: Normocephalic, Atraumatic and Moist Mucous Membranes
Respiratory: Clear to Auscultation; Negative Wheezes, Rales or Rhonchi
Cardiac: S1/S2
GI: Soft, Nontender and Nondistended
Musculoskeletal: No Clubbing, No Cyanosis and No Edema
Neuro: Awake, Alert and Oriented
[2023-11-04 14:16] VITALS: BP 100/70; BP 90/60; PULSE 89
[2023-11-04 15:15] VITALS: BP 100/70
--- NOTE | 2023-11-04 15:28 | W.DS.TRANS ---
DC Summary - Steam Table Attendant
-
Discharge Instructions:
Discharge Diagnosis/Procedures symptomatic hyponatremia
Diet Restrict fluids to 48 oz
Activity No strenuous activity
Driving Restrictions No driving
Bathing Restrictions None
Blood Work CBC, CMP in 2-3 days, then in one week to follow
Other Services VN
Instructions:
Stand-Alone Forms:
Changes to Home Medications: Yes
Discharge Medications:
DC Medications w/original date entered in [id number]
atorvastatin 10 mg tablet 10 mg PO QPM High Cholesterol 12/01/15
calcium carbonate 600 mg-vitamin D3 10 mcg (400 unit) tablet (Calcium 600 + D(3)) 1 ea PO DAILY Supplement 12/01/15
acetaminophen 500 mg tablet (Tylenol Extra Strength) 1,000 mg PO Q6H Pain 06/20/16
vitamin E (dl, acetate) 180 mg (400 unit) capsule 400 units PO DAILY Supplement 06/20/16
docusate sodium 100 mg capsule 100 mg PO BID ##0 07/20/16
cranberry 400 mg capsule 800 mg PO BID Supplement 10/28/23
ginkgo biloba 40 mg tablet 40 mg PO DAILY Supplement 10/28/23
glucosamine-chondroitin 250 mg-200 mg tablet (Osteo Bi-Flex) 1 tab PO DAILY Supplement 10/28/23
latanoprostene bunod 0.024 % eye drops (Vyzulta) 1 drp BOTH EYES QPM Eye Condition 10/28/23
loratadine 10 mg tablet 10 mg PO HSPRN PRN ALLERGY 10/28/23
multivitamin with minerals (Hair,Skin and Nails tablet) 1 tab PO DAILY Supplement 10/28/23
therapeutic multivitamin 1 tab PO DAILY Supplement 10/28/23
furosemide 20 mg tablet 10 mg PO DAILY #30 tabs 11/04/23
midodrine 10 mg tablet 10 mg PO TID PRN for systolic BP<100 #30 tabs 11/04/23
sodium chloride 1,000 mg soluble tablet 1,000 mg PO BID #60 tabs 11/04/23
Home Medication Changes
low dose Lasix added
Midodrine prn low BP added
Salt tablets added
Pending Results: No
--- NOTE | 2023-11-04 17:16 | W.DS.TRANS ---
DC Summary - Draw In Hand
-
Discharge Instructions:
Discharge Diagnosis/Procedures symptomatic hyponatremia
Diet Restrict fluids to 48 oz
Activity No strenuous activity
Driving Restrictions No driving
Bathing Restrictions None
Blood Work CBC, CMP in 2-3 days, then in one week to follow
repeat UA in 1-2 weeks
Other Services VN
Instructions:
Stand-Alone Forms:
Changes to Home Medications: Yes
Discharge Medications:
DC Medications w/original date entered in [employer]
atorvastatin 10 mg tablet 10 mg PO QPM High Cholesterol 12/01/15
calcium carbonate 600 mg-vitamin D3 10 mcg (400 unit) tablet (Calcium 600 + D(3)) 1 ea PO DAILY Supplement 12/01/15
acetaminophen 500 mg tablet (Tylenol Extra Strength) 1,000 mg PO Q6H Pain 06/20/16
vitamin E (dl, acetate) 180 mg (400 unit) capsule 400 units PO DAILY Supplement 06/20/16
docusate sodium 100 mg capsule 100 mg PO BID ##0 07/20/16
cranberry 400 mg capsule 800 mg PO BID Supplement 10/28/23
ginkgo biloba 40 mg tablet 40 mg PO DAILY Supplement 10/28/23
glucosamine-chondroitin 250 mg-200 mg tablet (Osteo Bi-Flex) 1 tab PO DAILY Supplement 10/28/23
latanoprostene bunod 0.024 % eye drops (Vyzulta) 1 drp BOTH EYES QPM Eye Condition 10/28/23
loratadine 10 mg tablet 10 mg PO HSPRN PRN ALLERGY 10/28/23
multivitamin with minerals (Hair,Skin and Nails tablet) 1 tab PO DAILY Supplement 10/28/23
therapeutic multivitamin 1 tab PO DAILY Supplement 10/28/23
furosemide 20 mg tablet 10 mg PO DAILY #30 tabs 11/04/23
midodrine 10 mg tablet 10 mg PO TID PRN for systolic BP<100 #30 tabs 11/04/23
sodium chloride 1,000 mg soluble tablet 1,000 mg PO BID #60 tabs 11/04/23
Home Medication Changes
Lasix and NaCl added to medications
Midodrine added prn
Pending Results: No
== END 2023-11-04 15:51 | disposition home health service (06) | DRG 643 ==
LOC: 4 EAST ACU 19:35
PROVIDERS: Internal Medicine; Registered Nurse; ADMITTING PHYSICIAN Hospitalist; ATTENDING PHYSICIAN Internal Medicine; CONSULT PHYSICIAN Specialist; EMERGENCY PHYSICIAN Emergency Medicine; FAMILY PHYSICIAN Physician Assistant Medical
DX: E22.2 Syndrome of inappropriate secretion of antidiuretic hormone (principal); G92.8 Other toxic encephalopathy; E87.3 Alkalosis; E87.6 Hypokalemia; R74.01 Elevation of levels of liver transaminase levels; I95.1 Orthostatic hypotension; E78.00 Pure hypercholesterolemia, unspecified; Z66 Do not resuscitate
CPT/HCPCS: 70450; 72040; 72072; 73010; 80048; 80053; 81003; 81015; 83930; 83935; 84295; 84300; 84443; 85025; 86308; 87086; 87502; 87811; 97116; 97163; 97167; 97530; 97535; 99285

== ENCOUNTER → 2023-11-07 12:13 | Outpatient (REF) | payer MEDICARE, OTHER, SELFPAY ==
[2023-11-07 13:05] LABS: Hematocrit 37.5 % (37.0-47.0); Hemoglobin 12.7 g/dL (12.0-16.0); Mean Corp Hgb Conc. 33.9 g/dL (33.0-37.0); Mean Corpuscular Hgb 33.5 pg (27.0-31.0); Mean Corpuscular Volume 98.9 fL (81.0-99.0); Mean Platelet Volume 9.9 fL (7.4-10.4); Platelet Count 182 10^3/uL (130-400); Red Blood Cell Count 3.79 10^6/uL (4.20-5.40); White Blood Cell Count 5.2 10^3/uL (4.8-10.8)
[2023-11-07 13:13] LABS: Urine Albumin Negative (Neg - Trace); Urine Bilirubin Negative (Negative); Urine Character Clear (Clear); Urine Color Yellow; Urine Glucose Negative (Negative); Urine Ketone Negative (Negative); Urine Leukocyte Negative (Negative); Urine Nitrite Negative (Negative); Urine Occult Blood Negative (Negative); Urine Specific Gravity 1.015 (<1.030); Urine Urobilinogen Negative (Neg - 1+)
[2023-11-07 13:15] LABS: ALT (SGPT) 143 U/L (0-35); AST (SGOT) 69 U/L (14-36); Albumin 4.1 g/dl (3.5-5.0); Alkaline Phosphatase 153 U/L (38-126); Blood Urea Nitrogen 30 mg/dl (7-17); Calcium 9.1 mg/dl (8.4-10.2); Carbon Dioxide 27 mmol/L (22-30); Chloride 99 mmol/L (98-107); Glucose 91 mg/dl (70-99); Potassium 4.2 mmol/L (3.5-5.1); Sodium 133 mmol/L (135-145); Total Bilirubin 0.8 mg/dl (0.2-1.3); Total Protein 6.8 g/dl (6.3-8.2); eGFR > 60.00
== END ==
LOC: CLAB 12:13
PROVIDERS: ATTENDING PHYSICIAN Physician Assistant Medical
DX: E87.1 Hypo-osmolality and hyponatremia (principal)
CPT/HCPCS: 80053; 81003; 85027

== ENCOUNTER → 2023-11-11 11:41 | Outpatient (REF) | payer MEDICARE, OTHER, SELFPAY ==
[2023-11-11 12:26] LABS: Hematocrit 36.3 % (37.0-47.0); Hemoglobin 12.2 g/dL (12.0-16.0); Mean Corp Hgb Conc. 33.6 g/dL (33.0-37.0); Mean Corpuscular Hgb 33.1 pg (27.0-31.0); Mean Corpuscular Volume 98.4 fL (81.0-99.0); Mean Platelet Volume 9.8 fL (7.4-10.4); Platelet Count 244 10^3/uL (130-400); Red Blood Cell Count 3.69 10^6/uL (4.20-5.40); Red Cell Dist. Width 14.8 % (11.5-14.5); White Blood Cell Count 4.4 10^3/uL (4.8-10.8)
[2023-11-11 12:54] LABS: ALT (SGPT) 63 U/L (0-35); AST (SGOT) 29 U/L (14-36); Alkaline Phosphatase 147 U/L (38-126); Blood Urea Nitrogen 27 mg/dl (7-17); Carbon Dioxide 29 mmol/L (22-30); Chloride 103 mmol/L (98-107); Glucose 92 mg/dl (70-99); Sodium 135 mmol/L (135-145); Total Bilirubin 0.6 mg/dl (0.2-1.3); Total Protein 6.7 g/dl (6.3-8.2); eGFR > 60.00
== END ==
LOC: CLAB 11:41
PROVIDERS: ATTENDING PHYSICIAN Physician Assistant Medical
DX: E87.1 Hypo-osmolality and hyponatremia (principal)
CPT/HCPCS: 36415; 80053; 85027

== ENCOUNTER → 2023-11-27 13:21 | Outpatient (REF) | payer MEDICARE, OTHER, SELFPAY ==
[2023-11-27 16:15] LABS: % Basophils 0.9 % (0-2); % Immature Granulocytes 0.2 % (0-0.5); % Monocytes 8.2 % (1.7-9.3); % Neutrophils 61.7 % (42.2-75.2); Absolute Basophils 0.1 10^3/uL (0-0.2); Absolute Eosinophils 0.1 10^3/uL (0-0.7); Absolute Lymphocytes 1.5 10^3/uL (1.2-3.4); Absolute Monocytes 0.5 10^3/uL (0.1-0.6); Absolute Neutrophils 3.4 10^3/uL (1.4-6.5); Hematocrit 37.6 % (37.0-47.0); Hemoglobin 12.8 g/dL (12.0-16.0); Mean Corpuscular Hgb 33.6 pg (27.0-31.0); Mean Corpuscular Volume 98.7 fL (81.0-99.0); Mean Platelet Volume 10.3 fL (7.4-10.4); Nucleated Red Blood Cells % 0 %; Platelet Count 129 10^3/uL (130-400); Red Blood Cell Count 3.81 10^6/uL (4.20-5.40); Red Cell Dist. Width 13.9 % (11.5-14.5); White Blood Cell Count 5.5 10^3/uL (4.8-10.8)
[2023-11-27 16:23] LABS: ALT (SGPT) 21 U/L (0-35); AST (SGOT) 30 U/L (14-36); Albumin 3.9 g/dl (3.5-5.0); Alkaline Phosphatase 111 U/L (38-126); Blood Urea Nitrogen 23 mg/dl (7-17); Calcium 9.3 mg/dl (8.4-10.2); Carbon Dioxide 30 mmol/L (22-30); Chloride 99 mmol/L (98-107); Glucose 108 mg/dl (70-99); Potassium 4.2 mmol/L (3.5-5.1); Sodium 131 mmol/L (135-145); Total Bilirubin 0.5 mg/dl (0.2-1.3); Total Protein 6.6 g/dl (6.3-8.2); eGFR > 60.00
== END ==
LOC: HWLAB 13:21
PROVIDERS: ATTENDING PHYSICIAN Physician Assistant Medical; REFERRING PHYSICIAN Specialist
DX: E87.1 Hypo-osmolality and hyponatremia (principal)
CPT/HCPCS: 36415; 80053; 85025

== ENCOUNTER → 2023-12-06 11:48 | Outpatient (REF) | payer MEDICARE, OTHER, SELFPAY ==
[2023-12-06 16:34] LABS: Blood Urea Nitrogen 31 mg/dl (7-17); Calcium 9.9 mg/dl (8.4-10.2); Carbon Dioxide 29 mmol/L (22-30); Chloride 97 mmol/L (98-107); Glucose 91 mg/dl (70-99); Potassium 4.7 mmol/L (3.5-5.1); Sodium 132 mmol/L (135-145); eGFR > 60.00
== END ==
LOC: HWLAB 11:48
PROVIDERS: ATTENDING PHYSICIAN Physician Assistant Medical
DX: E87.1 Hypo-osmolality and hyponatremia (principal)
CPT/HCPCS: 36415; 80048

== ENCOUNTER → 2024-01-01 10:52 | Outpatient (REF) | payer MEDICARE, OTHER, SELFPAY ==
[2024-01-01 14:19] LABS: Blood Urea Nitrogen 28 mg/dl (7-17); Calcium 9.3 mg/dl (8.4-10.2); Carbon Dioxide 31 mmol/L (22-30); Chloride 100 mmol/L (98-107); Glucose 79 mg/dl (70-99); Potassium 4.4 mmol/L (3.5-5.1); Sodium 135 mmol/L (135-145); eGFR > 60.00
== END ==
LOC: HWLAB 10:52
PROVIDERS: ATTENDING PHYSICIAN Specialist; FAMILY PHYSICIAN Physician Assistant Medical
DX: E87.1 Hypo-osmolality and hyponatremia (principal)
CPT/HCPCS: 36415; 80048

== ENCOUNTER → 2024-03-02 11:54 | Outpatient (REF) | payer MEDICARE, OTHER, SELFPAY ==
[2024-03-02 15:47] LABS: Blood Urea Nitrogen 28 mg/dl (7-17); Carbon Dioxide 29 mmol/L (22-30); Chloride 99 mmol/L (98-107); Glucose 93 mg/dl (70-99); Potassium 4.2 mmol/L (3.5-5.1); Sodium 136 mmol/L (135-145); eGFR > 60.00
== END ==
LOC: HWLAB 11:54
PROVIDERS: ATTENDING PHYSICIAN Specialist; FAMILY PHYSICIAN Physician Assistant Medical
DX: E87.1 Hypo-osmolality and hyponatremia (principal)
CPT/HCPCS: 36415; 80048

== ENCOUNTER → 2024-06-04 11:24 | Outpatient (REF) | payer MEDICARE, OTHER, SELFPAY ==
[2024-06-04 15:39] LABS: Blood Urea Nitrogen 24 mg/dl (7-17); Calcium 9.4 mg/dl (8.4-10.2); Carbon Dioxide 30 mmol/L (22-30); Chloride 98 mmol/L (98-107); Glucose 88 mg/dl (70-99); Potassium 4.6 mmol/L (3.5-5.1); Sodium 139 mmol/L (135-145); eGFR > 60.00
== END ==
LOC: HWLAB 11:24
PROVIDERS: ATTENDING PHYSICIAN Specialist; FAMILY PHYSICIAN Physician Assistant Medical
DX: E87.1 Hypo-osmolality and hyponatremia (principal)
CPT/HCPCS: 36415; 80048

== ENCOUNTER → 2024-09-03 11:13 | Outpatient (REF) | payer MEDICARE, OTHER, SELFPAY ==
[2024-09-03 14:20] LABS: Blood Urea Nitrogen 25 mg/dl (7-17); Calcium 9.1 mg/dl (8.4-10.2); Carbon Dioxide 30 mmol/L (22-30); Chloride 98 mmol/L (98-107); Glucose 97 mg/dl (70-99); Potassium 4.1 mmol/L (3.5-5.1); Sodium 134 mmol/L (135-145); eGFR > 60.00
== END ==
LOC: HWLAB 11:13
PROVIDERS: ATTENDING PHYSICIAN Specialist; FAMILY PHYSICIAN Physician Assistant Medical
DX: E87.1 Hypo-osmolality and hyponatremia (principal)
CPT/HCPCS: 80048

== ENCOUNTER → 2024-12-07 11:20 | Outpatient (REF) | payer MEDICARE, OTHER, SELFPAY ==
[2024-12-07 16:42] LABS: Blood Urea Nitrogen 28 mg/dl (7-17); Calcium 9.7 mg/dl (8.4-10.2); Carbon Dioxide 29 mmol/L (22-30); Chloride 100 mmol/L (98-107); Glucose 105 mg/dl (70-99); Potassium 4.8 mmol/L (3.5-5.1); Sodium 139 mmol/L (135-145); eGFR > 60.00
== END ==
LOC: HWLAB 11:20
PROVIDERS: ATTENDING PHYSICIAN Specialist; FAMILY PHYSICIAN Physician Assistant Medical
DX: E87.1 Hypo-osmolality and hyponatremia (principal)
CPT/HCPCS: 36415; 80048

== ENCOUNTER → 2025-03-02 10:55 | Outpatient (REF) | payer MEDICARE, OTHER, SELFPAY | LOC: HWRAD 10:55 | PROVIDERS: ATTENDING PHYSICIAN Internal Medicine | DX: R22.1 Localized swelling, mass and lump, neck (principal) | CPT/HCPCS: 76536 ==

== ENCOUNTER → 2025-03-08 11:02 | Outpatient (REF) | payer MEDICARE, OTHER, SELFPAY ==
[2025-03-08 16:08] LABS: Blood Urea Nitrogen 25 mg/dl (7-17); Calcium 9.7 mg/dl (8.4-10.2); Carbon Dioxide 30 mmol/L (22-30); Chloride 104 mmol/L (98-107); Glucose 101 mg/dl (70-99); Potassium 4.6 mmol/L (3.5-5.1); Sodium 138 mmol/L (135-145); eGFR > 60.00
== END ==
LOC: HWLAB 11:02
PROVIDERS: ATTENDING PHYSICIAN Specialist; FAMILY PHYSICIAN Physician Assistant Medical
DX: E87.1 Hypo-osmolality and hyponatremia (principal)
CPT/HCPCS: 36415; 80048

== ENCOUNTER → 2025-03-16 13:21 | Outpatient (REF) | payer MEDICARE, OTHER, SELFPAY ==
[2025-03-16 13:35] VITALS: BP 149/94; BP_SYST 81
[2025-03-16 14:35] VITALS: BP 149/99; BP_SYST 74
[2025-03-16 14:44] VITALS: BP 149/99
== END ==
LOC: RADI 13:21
PROVIDERS: ATTENDING PHYSICIAN Internal Medicine
DX: C83.31 Diffuse large B-cell lymphoma, lymph nodes of head, face, and neck (principal)
CPT/HCPCS: 20206; 76942; 87070; 87102; 87176; 87205; 87206; 88305; 88333; 88334; 88341; 88342

== ENCOUNTER → 2025-04-15 10:35 | Outpatient (REF) | payer MEDICARE, OTHER, SELFPAY | LOC: RCS 10:35 | PROVIDERS: ATTENDING PHYSICIAN Internal Medicine Hematology & Oncology; FAMILY PHYSICIAN Internal Medicine | DX: C83.31 Diffuse large B-cell lymphoma, lymph nodes of head, face, and neck (principal) | CPT/HCPCS: 93306; 93356 ==

== ENCOUNTER → 2025-04-20 08:16 | Outpatient (REF) | payer MEDICARE, OTHER, SELFPAY ==
[2025-04-20 09:07] VITALS: BP 136/78; BP_SYST 70
[2025-04-20] MEDS: ANCEF 5 IV (09:45)
[2025-04-20 10:43] VITALS: BP 120/43; BP_SYST 72
[2025-04-20 11:00] VITALS: BP 142/90
[2025-04-20 11:08] VITALS: BP 130/75
== END ==
LOC: RADI 08:16
PROVIDERS: ATTENDING PHYSICIAN Internal Medicine Hematology & Oncology; FAMILY PHYSICIAN Physician Assistant Medical; REFERRING PHYSICIAN Specialist
DX: C83.31 Diffuse large B-cell lymphoma, lymph nodes of head, face, and neck (principal)
CPT/HCPCS: 36561; 76937; 77001; 99152; 99153; C1788

== ENCOUNTER → 2025-04-22 09:45 | Outpatient (REF) | payer MEDICARE, OTHER, SELFPAY | LOC: RAD 09:45 | PROVIDERS: ATTENDING PHYSICIAN Nurse Practitioner Primary Care; FAMILY PHYSICIAN Physician Assistant Medical; REFERRING PHYSICIAN Internal Medicine Hematology & Oncology | DX: C83.31 Diffuse large B-cell lymphoma, lymph nodes of head, face, and neck (principal) | CPT/HCPCS: 76536 ==

== ENCOUNTER → 2025-04-28 11:00 | Outpatient (REF) | payer MEDICARE, OTHER, SELFPAY ==
[2025-04-28 13:04] LABS: ALT (SGPT) 180 U/L (0-35); AST (SGOT) 28 U/L (14-36); Albumin 3.9 g/dl (3.5-5.0); Alkaline Phosphatase 147 U/L (38-126); Blood Urea Nitrogen 22 mg/dl (7-17); Calcium 9.2 mg/dl (8.4-10.2); Carbon Dioxide 30 mmol/L (22-30); Chloride 93 mmol/L (98-107); Glucose 103 mg/dl (70-99); LDH 204 U/L (120-246); Potassium 4.2 mmol/L (3.5-5.1); Sodium 129 mmol/L (135-145); Total Protein 6.4 g/dl (6.3-8.2); Uric Acid 2.3 mg/dl (2.5-6.2); eGFR > 60.00
[2025-04-28 13:10] LABS: Hematocrit 37.0 % (37.0-47.0); Hemoglobin 12.3 g/dL (12.0-16.0); Mean Corp Hgb Conc. 33.2 g/dL (33.0-37.0); Mean Corpuscular Volume 97.4 fL (81.0-99.0); Red Cell Dist. Width 13.4 % (11.5-14.5)
[2025-04-28 13:44] LABS: Absolute Neutrophils -Man Diff 1.4 10^3/uL (1.4-6.5); Platelet Count 4 10^3/uL (130-400)
[2025-04-28 13:45] LABS: Normal RBC Morphology Yes; Platelets Checked Yes; Smudge Cells 2+; Total Cells Counted 100
== END ==
LOC: HWLAB 11:00
PROVIDERS: ATTENDING PHYSICIAN Internal Medicine Hematology & Oncology; FAMILY PHYSICIAN Internal Medicine
DX: C83.31 Diffuse large B-cell lymphoma, lymph nodes of head, face, and neck (principal)
CPT/HCPCS: 36415; 80053; 83615; 84550; 85025

== ENCOUNTER 2025-04-28 16:14 | Emergency (ER) | payer MEDICARE, OTHER, SELFPAY ==
[2025-04-28 16:17] VITALS: BP 148/94
[2025-04-28 19:06] VITALS: BP 146/89; BMI 24.3
--- NOTE | 2025-04-28 19:18 | ED.GENMED ---
History of Present Illness
General
Chief Complaint: Abnormal Lab Value
Time Seen by Provider: 04/28/25 18:27
History of Present Illness
History of Present Illness:
89-year-old female with history of lymphoma presenting to the emergency department for concern of low platelets. Patient is following with [facility], had her labs drawn today which showed a very low platelet count of 4. Patient denies
any history of transfusion, however did get her first chemotherapy last week. Denies any bleeding, notes a small bruise to her left wrist. Denies any rashes. Denies any weakness, chest pain, difficulty breathing, abdominal pain, fever, or medical
complaints
Past History
Past History
ED Past Medical History: Hypercholesterolemia and Other (Open-angle glaucoma both eyes)
Social History
Tobacco: Non-smoker
Alcohol: None
Living: alone
Phy Exam
Physical Exam
Physical Exam:
General: Well-appearing, no clinical signs of dehydration, nontoxic and in no acute distress
HEENT: protecting airway
Neck: appears supple
CV: Normal heart rate, regular rhythm
Resp: No accessory muscle use, no increased work of breathing, lungs clear to auscultation bilaterally
Abd: No distention, nontender
Extremities: No deformities, no swelling
Neuro: alert, no focal neurologic deficit
: deferred
Rectal: deferred
Psych: Normal affect
Skin: Intact
Course
Orders/Labs/Results
Orders:
Orders
04/28/25 19:08
* Blood Bank Products Urgent
Blood Bank Products: *Plt Single Donor Leuko
Quantity: 1
Transfuse Today: Yes
Reason: Thrombocytopenia
Vital Signs
Initial and Last Documented VS:
Initial Vital Signs
Temp Pulse Resp BP Pulse Ox
98 F 104 18 148/94 100
04/28/25 16:17 04/28/25 16:17 04/28/25 16:17 04/28/25 16:17 04/28/25 16:17
Last Documented Vital Signs
Temp Pulse Resp BP Pulse Ox
98.1 F 78 20 146/89 97
04/28/25 19:06 04/28/25 19:06 04/28/25 19:06 04/28/25 19:06 04/28/25 19:06
MDM/Problems Addressed
MDM/Problems Addressed:
89-year-old female with history of lymphoma presenting for low platelets. Vital signs on arrival are normal.
On exam patient is resting comfortably, no acute distress or discomfort. Patient currently without any acute medical complaints. Labs reviewed from today, platelet count of 4000. No signs of acute bleeding. Will discuss with oncology with plan
for transfusion.
19:20 - In discussion with oncology, recommend 1 bag of platelets and given hemodynamic stability, plan for repeat CBC and oncology follow-up. Patient consented.
*Pulse Oximetry
SaO2: 97
Oxygen Mode of Delivery: Room air
Patient hypoxic: no
*Critical Care Note
Total Time (30-74mins, 75-104mins- exclusive of procedures): Not Applicable
ED Attending Note
-
Portions of this chart may have been created with voice recognition software.� Occasional wrong word or��sound alike� substitutions may have occurred due to the inherent limitations of voice recognition software.
Discharge Plan
Departure
Prescriptions:
No Action
atorvastatin 10 MG tablet
10 mg PO QPM
calcium carbonate-vitamin D3 [Calcium 600 + D(3)] 1 EACH tablet
1 ea PO DAILY
acetaminophen [Tylenol Extra Strength] 500 MG tablet
1,000 mg PO Q6H
vitamin E (dl, acetate) 400 UNITS capsule
400 units PO DAILY
docusate sodium 100 MG capsule
100 mg PO BID Qty: 0 0RF
Vyzulta 0.024 % Drops
1 drp BOTH EYES QPM
loratadine 10 MG tablet
10 mg PO HSPRN PRN (Reason: ALLERGY)
therapeutic multivitamin Tablet
1 tab PO DAILY
ginkgo biloba 40 mg Tablet
40 mg PO DAILY
cranberry fruit 400 mg Capsule
800 mg PO BID
Hair,Skin and Nails Tablet
1 tab PO DAILY
glucosamine-chondroitin [Osteo Bi-Flex] 250-200 mg Tablet
1 tab PO BID
furosemide 20 mg Tablet
10 mg PO DAILY Qty: 30 0RF
sodium chloride 1,000 mg Tablet,Soluble
1,000 mg PO BID Qty: 60 0RF
allopurinol 300 mg Tablet
300 mg PO DAILY
Referrals:
Nati Hsieh PA-C [Family Provider, Internal Medicine]
Interventions
Interventions:
*Risk Screen - Suicide Last Done: 04/28/25 16:21
*General Assessment Last Done: 04/28/25 16:21
*Neglect/Abuse Screening Last Done: 04/28/25 19:06
*ED COVID-19 Vaccine History Last Done: 04/28/25 16:21
Discharge Date and Time
Print Language: LAO
[2025-04-28 21:19] VITALS: BP 147/67
[2025-04-28 21:36] VITALS: BP 110/45
[2025-04-28 22:29] VITALS: BP 129/95
== END 2025-04-28 23:24 | disposition home or self-care (01) ==
LOC: EMR 16:14
PROVIDERS: EMERGENCY PHYSICIAN Student in an Organized Health Care Education/Training Program; FAMILY PHYSICIAN Physician Assistant Medical
DX: D69.6 Thrombocytopenia, unspecified (principal); C85.90 Non-Hodgkin lymphoma, unspecified, unspecified site; E78.00 Pure hypercholesterolemia, unspecified; Z79.60 Long term (current) use of unspecified immunomodulators and immunosuppressants
CPT/HCPCS: 36430; 99285; P9073

== ENCOUNTER → 2025-04-29 13:48 | Outpatient (REF) | payer MEDICARE, OTHER, SELFPAY | LOC: HWRAD 13:48 | PROVIDERS: ATTENDING PHYSICIAN Internal Medicine Critical Care Medicine; FAMILY PHYSICIAN Internal Medicine | DX: C83.31 Diffuse large B-cell lymphoma, lymph nodes of head, face, and neck (principal) | CPT/HCPCS: 71250 ==

== ENCOUNTER → 2025-05-05 11:38 | Outpatient (REF) | payer MEDICARE, OTHER, SELFPAY ==
[2025-05-05 17:06] LABS: ALT (SGPT) 64 U/L (0-35); AST (SGOT) 31 U/L (14-36); Albumin 4.1 g/dl (3.5-5.0); Alkaline Phosphatase 225 U/L (38-126); Blood Urea Nitrogen 18 mg/dl (7-17); Calcium 9.3 mg/dl (8.4-10.2); Carbon Dioxide 28 mmol/L (22-30); Chloride 96 mmol/L (98-107); Glucose 83 mg/dl (70-99); LDH 336 U/L (120-246); Potassium 4.4 mmol/L (3.5-5.1); Sodium 131 mmol/L (135-145); Total Protein 6.7 g/dl (6.3-8.2); Uric Acid 3.0 mg/dl (2.5-6.2); eGFR > 60.00
[2025-05-05 17:16] LABS: Hematocrit 36.4 % (37.0-47.0); Hemoglobin 11.9 g/dL (12.0-16.0); Mean Corp Hgb Conc. 32.7 g/dL (33.0-37.0); Mean Corpuscular Volume 99.5 fL (81.0-99.0); Nucleated Red Blood Cells % 0.2 %; Platelet Count 95 10^3/uL (130-400); Red Cell Dist. Width 15.3 % (11.5-14.5)
== END ==
LOC: HWLAB 11:38
PROVIDERS: ATTENDING PHYSICIAN Internal Medicine Hematology & Oncology; FAMILY PHYSICIAN Internal Medicine
DX: C83.31 Diffuse large B-cell lymphoma, lymph nodes of head, face, and neck (principal)
CPT/HCPCS: 36415; 80053; 83615; 84550; 85025

== ENCOUNTER → 2025-05-14 09:14 | Outpatient (REF) | payer MEDICARE, OTHER, SELFPAY ==
[2025-05-14 12:27] LABS: Hematocrit 35.6 % (37.0-47.0); Hemoglobin 11.6 g/dL (12.0-16.0); Mean Corp Hgb Conc. 32.6 g/dL (33.0-37.0); Mean Corpuscular Volume 100.6 fL (81.0-99.0); Nucleated Red Blood Cells % 0 %; Platelet Count 234 10^3/uL (130-400); Red Cell Dist. Width 15.9 % (11.5-14.5)
[2025-05-14 12:33] LABS: INR 1.03; PT 13.8 Sec (11.4-14.6)
[2025-05-14 12:34] LABS: APTT 27.5 Sec (23.4-35.0)
[2025-05-14 12:57] LABS: ALT (SGPT) 23 U/L (0-35); AST (SGOT) 23 U/L (14-36); Albumin 4.0 g/dl (3.5-5.0); Alkaline Phosphatase 123 U/L (38-126); Blood Urea Nitrogen 19 mg/dl (7-17); Calcium 9.4 mg/dl (8.4-10.2); Carbon Dioxide 29 mmol/L (22-30); Chloride 101 mmol/L (98-107); Glucose 88 mg/dl (70-99); LDH 231 U/L (120-246); Potassium 4.1 mmol/L (3.5-5.1); Sodium 134 mmol/L (135-145); Total Protein 6.5 g/dl (6.3-8.2); Uric Acid 3.1 mg/dl (2.5-6.2); eGFR > 60.00
== END ==
LOC: HWLAB 09:14
PROVIDERS: ATTENDING PHYSICIAN Internal Medicine Critical Care Medicine; FAMILY PHYSICIAN Internal Medicine; REFERRING PHYSICIAN Internal Medicine Hematology & Oncology
DX: D69.6 Thrombocytopenia, unspecified (principal); C83.31 Diffuse large B-cell lymphoma, lymph nodes of head, face, and neck
CPT/HCPCS: 36415; 80053; 83615; 84550; 85025; 85610; 85730

== ENCOUNTER 2025-05-17 06:06 | Day surgery (SDC) | payer MEDICARE, OTHER, SELFPAY ==
[2025-05-17] VITALS (8 sets, daily range): BP systolic 120–154; BP diastolic 74–91; BMI 22.8
== END 2025-05-17 12:15 | disposition home or self-care (01) ==
LOC: GI 06:06
PROVIDERS: ATTENDING PHYSICIAN Internal Medicine Critical Care Medicine
DX: R91.1 Solitary pulmonary nodule (principal); D14.31 Benign neoplasm of right bronchus and lung; R84.6 Abnormal cytological findings in specimens from respiratory organs and thorax
CPT/HCPCS: 31623; 31624; 31627; 31654; 71045; 76000; 87070; 87102; 87116; 87205; 88112; 88305; C1887

== ENCOUNTER → 2025-05-19 13:12 | Outpatient (REF) | payer MEDICARE, OTHER, SELFPAY ==
[2025-05-19 09:05] LABS: Hematocrit 36.8 % (37.0-47.0); Hemoglobin 12.0 g/dL (12.0-16.0); Mean Corp Hgb Conc. 32.6 g/dL (33.0-37.0); Mean Corpuscular Volume 104.8 fL (81.0-99.0); Platelet Count 173 10^3/uL (130-400); Red Cell Dist. Width 16.0 % (11.5-14.5)
[2025-05-19 09:59] LABS: Blood Urea Nitrogen 23 mg/dl (7-17); Glucose 90 mg/dl (70-99)
[2025-05-19 10:00] LABS: ALT (SGPT) 32 U/L (0-35); AST (SGOT) 30 U/L (14-36); Albumin 4.3 g/dl (3.5-5.0); Alkaline Phosphatase 110 U/L (38-126); Calcium 9.1 mg/dl (8.4-10.2); Carbon Dioxide 27 mmol/L (22-30); Chloride 100 mmol/L (98-107); Potassium 4.0 mmol/L (3.5-5.1); Sodium 134 mmol/L (135-145); Total Protein 6.9 g/dl (6.3-8.2); eGFR > 60.00
== END ==
LOC: OIDL 13:12
PROVIDERS: ATTENDING PHYSICIAN Internal Medicine Hematology & Oncology
DX: C83.31 Diffuse large B-cell lymphoma, lymph nodes of head, face, and neck (principal)
CPT/HCPCS: 80053; 85025

== ENCOUNTER → 2025-05-26 09:06 | Outpatient (REF) | payer MEDICARE, OTHER, SELFPAY ==
[2025-05-26 10:14] LABS: Hematocrit 33.8 % (37.0-47.0); Hemoglobin 11.6 g/dL (12.0-16.0); Mean Corp Hgb Conc. 34.3 g/dL (33.0-37.0); Mean Corpuscular Volume 99.1 fL (81.0-99.0); Nucleated Red Blood Cells % 0 %; Platelet Count 14 10^3/uL (130-400); Red Cell Dist. Width 14.8 % (11.5-14.5)
[2025-05-26 10:33] LABS: ALT (SGPT) 51 U/L (0-35); AST (SGOT) 25 U/L (14-36); Albumin 3.9 g/dl (3.5-5.0); Alkaline Phosphatase 171 U/L (38-126); Blood Urea Nitrogen 21 mg/dl (7-17); Calcium 9.2 mg/dl (8.4-10.2); Carbon Dioxide 28 mmol/L (22-30); Chloride 98 mmol/L (98-107); Glucose 113 mg/dl (70-99); LDH 215 U/L (120-246); Potassium 3.8 mmol/L (3.5-5.1); Sodium 132 mmol/L (135-145); Total Protein 6.5 g/dl (6.3-8.2); Uric Acid 2.6 mg/dl (2.5-6.2); eGFR > 60.00
[2025-05-26 13:56] LABS: Absolute Neutrophils -Man Diff 2.3 10^3/uL (1.4-6.5); Normal RBC Morphology Yes
[2025-05-26 13:57] LABS: Platelets Checked Yes; Total Cells Counted 100
== END ==
LOC: OIDL 09:06
PROVIDERS: ATTENDING PHYSICIAN Internal Medicine Hematology & Oncology
DX: C83.31 Diffuse large B-cell lymphoma, lymph nodes of head, face, and neck (principal)
CPT/HCPCS: 36415; 80053; 83615; 84550; 85025

== ENCOUNTER 2025-05-27 09:48 | Outpatient (RCR) | payer MEDICARE, OTHER, SELFPAY ==
[2025-05-27 10:05] VITALS: BP 112/73
[2025-05-27 10:36] VITALS: BP 118/70
[2025-05-27 10:53] VITALS: BP 105/76
[2025-05-27 11:45] VITALS: BP 118/73
== END 2025-06-01 23:59 | disposition home or self-care (01) ==
LOC: OID 09:48
PROVIDERS: ATTENDING PHYSICIAN Internal Medicine Hematology & Oncology; FAMILY PHYSICIAN Internal Medicine
DX: C83.31 Diffuse large B-cell lymphoma, lymph nodes of head, face, and neck (principal)
CPT/HCPCS: 36430; P9073

== ENCOUNTER → 2025-05-27 12:34 | Outpatient (REF) | payer MEDICARE, OTHER, SELFPAY ==
[2025-05-27 16:26] LABS: Urine Character Slightly Cloudy (Clear)
[2025-05-27 18:23] LABS: Urine White Cell 50-60 /HPF (0-5)
== END ==
LOC: HWLAB 12:34
PROVIDERS: ATTENDING PHYSICIAN Internal Medicine Hematology & Oncology; FAMILY PHYSICIAN Internal Medicine
DX: C83.31 Diffuse large B-cell lymphoma, lymph nodes of head, face, and neck (principal); N39.0 Urinary tract infection, site not specified
CPT/HCPCS: 81003; 81015; 87086; 87088; 87186

== ENCOUNTER → 2025-06-02 10:27 | Outpatient (REF) | payer MEDICARE, OTHER, SELFPAY ==
[2025-06-02 13:00] LABS: Hematocrit 31.4 % (37.0-47.0); Hemoglobin 10.8 g/dL (12.0-16.0); Mean Corp Hgb Conc. 34.4 g/dL (33.0-37.0); Mean Corpuscular Volume 99.4 fL (81.0-99.0); Nucleated Red Blood Cells % 0 %; Platelet Count 129 10^3/uL (130-400); Red Cell Dist. Width 15.4 % (11.5-14.5)
[2025-06-02 14:27] LABS: ALT (SGPT) 95 U/L (0-35); AST (SGOT) 56 U/L (14-36); Albumin 3.5 g/dl (3.5-5.0); Alkaline Phosphatase 353 U/L (38-126); Blood Urea Nitrogen 12 mg/dl (7-17); Calcium 8.5 mg/dl (8.4-10.2); Carbon Dioxide 26 mmol/L (22-30); Chloride 95 mmol/L (98-107); Glucose 116 mg/dl (70-99); Potassium 3.8 mmol/L (3.5-5.1); Sodium 130 mmol/L (135-145); Total Protein 5.8 g/dl (6.3-8.2); Uric Acid 2.6 mg/dl (2.5-6.2); eGFR > 60.00
[2025-06-02 16:51] LABS: LDH 276 U/L (120-246)
== END ==
LOC: HWLAB 10:27
PROVIDERS: ATTENDING PHYSICIAN Internal Medicine Hematology & Oncology; FAMILY PHYSICIAN Internal Medicine
DX: C83.31 Diffuse large B-cell lymphoma, lymph nodes of head, face, and neck (principal)
CPT/HCPCS: 36415; 80053; 83615; 84550; 85025

== ENCOUNTER → 2025-06-07 11:39 | Outpatient (REF) | payer MEDICARE, OTHER, SELFPAY ==
[2025-06-07 15:53] LABS: Hematocrit 33.8 % (37.0-47.0); Hemoglobin 11.2 g/dL (12.0-16.0); Mean Corp Hgb Conc. 33.1 g/dL (33.0-37.0); Mean Corpuscular Volume 101.5 fL (81.0-99.0); Nucleated Red Blood Cells % 0 %; Platelet Count 277 10^3/uL (130-400); Red Cell Dist. Width 15.7 % (11.5-14.5)
[2025-06-07 16:14] LABS: ALT (SGPT) 36 U/L (0-35); AST (SGOT) 24 U/L (14-36); Albumin 3.6 g/dl (3.5-5.0); Alkaline Phosphatase 241 U/L (38-126); Blood Urea Nitrogen 14 mg/dl (7-17); Calcium 8.8 mg/dl (8.4-10.2); Carbon Dioxide 31 mmol/L (22-30); Chloride 95 mmol/L (98-107); Glucose 86 mg/dl (70-99); Potassium 4.3 mmol/L (3.5-5.1); Sodium 130 mmol/L (135-145); Total Protein 6.1 g/dl (6.3-8.2); eGFR > 60.00
[2025-06-07 16:23] LABS: LDH 220 U/L (120-246); Uric Acid 2.9 mg/dl (2.5-6.2)
== END ==
LOC: HWLAB 11:39
PROVIDERS: ATTENDING PHYSICIAN Internal Medicine Hematology & Oncology; FAMILY PHYSICIAN Internal Medicine
DX: C83.31 Diffuse large B-cell lymphoma, lymph nodes of head, face, and neck (principal)
CPT/HCPCS: 36415; 80053; 83615; 84550; 85025

== ENCOUNTER → 2025-06-16 09:56 | Outpatient (REF) | payer MEDICARE, OTHER, SELFPAY ==
[2025-06-16 11:12] LABS: ALT (SGPT) 25 U/L (0-35); AST (SGOT) 18 U/L (14-36); Albumin 4.0 g/dl (3.5-5.0); Alkaline Phosphatase 236 U/L (38-126); Blood Urea Nitrogen 14 mg/dl (7-17); Calcium 8.9 mg/dl (8.4-10.2); Carbon Dioxide 31 mmol/L (22-30); Chloride 94 mmol/L (98-107); Glucose 91 mg/dl (70-99); LDH 215 U/L (120-246); Potassium 3.8 mmol/L (3.5-5.1); Sodium 130 mmol/L (135-145); Total Protein 6.5 g/dl (6.3-8.2); eGFR > 60.00
[2025-06-16 11:13] LABS: Uric Acid 2.3 mg/dl (2.5-6.2)
[2025-06-16 13:39] LABS: Hematocrit 32.4 % (37.0-47.0); Hemoglobin 10.8 g/dL (12.0-16.0); Mean Corp Hgb Conc. 33.3 g/dL (33.0-37.0); Mean Corpuscular Volume 101.3 fL (81.0-99.0); Red Cell Dist. Width 15.0 % (11.5-14.5)
[2025-06-16 13:43] LABS: Platelet Count 23 10^3/uL (130-400)
== END ==
LOC: OIDL 09:56
PROVIDERS: ATTENDING PHYSICIAN Internal Medicine Hematology & Oncology; FAMILY PHYSICIAN Internal Medicine
DX: C83.31 Diffuse large B-cell lymphoma, lymph nodes of head, face, and neck (principal)
CPT/HCPCS: 36415; 80053; 83615; 84550; 85025

== ENCOUNTER → 2025-06-17 10:02 | Outpatient (REF) | payer MEDICARE, OTHER, SELFPAY | LOC: PET 10:02 | PROVIDERS: ATTENDING PHYSICIAN Internal Medicine Hematology & Oncology | DX: C83.31 Diffuse large B-cell lymphoma, lymph nodes of head, face, and neck (principal) | CPT/HCPCS: 36415 ==

== ENCOUNTER → 2025-06-21 10:48 | Outpatient (REF) | payer MEDICARE, OTHER, SELFPAY ==
[2025-06-21 15:54] LABS: ALT (SGPT) 19 U/L (0-35); AST (SGOT) 21 U/L (14-36); Albumin 3.7 g/dl (3.5-5.0); Alkaline Phosphatase 228 U/L (38-126); Blood Urea Nitrogen 11 mg/dl (7-17); Calcium 9.0 mg/dl (8.4-10.2); Carbon Dioxide 29 mmol/L (22-30); Chloride 98 mmol/L (98-107); Glucose 102 mg/dl (70-99); LDH 265 U/L (120-246); Potassium 4.2 mmol/L (3.5-5.1); Sodium 130 mmol/L (135-145); Total Protein 6.2 g/dl (6.3-8.2); Uric Acid 3.5 mg/dl (2.5-6.2); eGFR > 60.00
[2025-06-21 16:36] LABS: Hematocrit 33.3 % (37.0-47.0); Hemoglobin 11.2 g/dL (12.0-16.0); Mean Corp Hgb Conc. 33.6 g/dL (33.0-37.0); Mean Corpuscular Volume 101.2 fL (81.0-99.0); Platelet Count 119 10^3/uL (130-400); Red Cell Dist. Width 16.3 % (11.5-14.5)
[2025-06-21 18:11] LABS: Nucleated Red Blood Cells % 0.3 %
== END ==
LOC: HWLAB 10:48
PROVIDERS: ATTENDING PHYSICIAN Internal Medicine Hematology & Oncology; FAMILY PHYSICIAN Internal Medicine
DX: C83.31 Diffuse large B-cell lymphoma, lymph nodes of head, face, and neck (principal)
CPT/HCPCS: 36415; 80053; 83615; 84550; 85025

== ENCOUNTER → 2025-06-28 10:52 | Outpatient (REF) | payer MEDICARE, OTHER, SELFPAY ==
[2025-06-28 16:27] LABS: Hematocrit 34.0 % (37.0-47.0); Hemoglobin 11.1 g/dL (12.0-16.0); Mean Corp Hgb Conc. 32.6 g/dL (33.0-37.0); Mean Corpuscular Volume 103.7 fL (81.0-99.0); Nucleated Red Blood Cells % 0 %; Platelet Count 207 10^3/uL (130-400); Red Cell Dist. Width 16.8 % (11.5-14.5)
[2025-06-28 16:31] LABS: ALT (SGPT) 16 U/L (0-35); AST (SGOT) 21 U/L (14-36); Albumin 3.9 g/dl (3.5-5.0); Alkaline Phosphatase 159 U/L (38-126); Blood Urea Nitrogen 18 mg/dl (7-17); Calcium 9.3 mg/dl (8.4-10.2); Carbon Dioxide 30 mmol/L (22-30); Chloride 100 mmol/L (98-107); Glucose 90 mg/dl (70-99); LDH 227 U/L (120-246); Potassium 4.6 mmol/L (3.5-5.1); Sodium 131 mmol/L (135-145); Total Protein 6.4 g/dl (6.3-8.2); Uric Acid 3.0 mg/dl (2.5-6.2); eGFR > 60.00
== END ==
LOC: HWLAB 10:52
PROVIDERS: ATTENDING PHYSICIAN Internal Medicine Hematology & Oncology; FAMILY PHYSICIAN Internal Medicine
DX: C83.31 Diffuse large B-cell lymphoma, lymph nodes of head, face, and neck (principal)
CPT/HCPCS: 36415; 80053; 82248; 83615; 84550; 85025

== ENCOUNTER → 2025-07-07 10:55 | Outpatient (REF) | payer MEDICARE, OTHER, SELFPAY ==
[2025-07-07 12:07] LABS: Hematocrit 28.5 % (37.0-47.0); Hemoglobin 9.6 g/dL (12.0-16.0); Mean Corp Hgb Conc. 33.7 g/dL (33.0-37.0); Mean Corpuscular Volume 101.8 fL (81.0-99.0); Red Cell Dist. Width 16.0 % (11.5-14.5)
[2025-07-07 12:22] LABS: ALT (SGPT) 30 U/L (0-35); AST (SGOT) 16 U/L (14-36); Albumin 3.8 g/dl (3.5-5.0); Alkaline Phosphatase 187 U/L (38-126); Blood Urea Nitrogen 15 mg/dl (7-17); Calcium 8.7 mg/dl (8.4-10.2); Carbon Dioxide 32 mmol/L (22-30); Chloride 95 mmol/L (98-107); Glucose 89 mg/dl (70-99); LDH 181 U/L (120-246); Potassium 3.9 mmol/L (3.5-5.1); Sodium 130 mmol/L (135-145); Total Protein 5.9 g/dl (6.3-8.2); Uric Acid 2.5 mg/dl (2.5-6.2); eGFR > 60.00
[2025-07-07 12:40] LABS: Absolute Neutrophils -Man Diff 1.9 10^3/uL (1.4-6.5); Platelet Count 11 10^3/uL (130-400); Platelets Checked Yes
[2025-07-07 12:41] LABS: Anisocytosis Slight; Normal RBC Morphology No; Total Cells Counted 100
== END ==
LOC: OIDL 10:55
PROVIDERS: ATTENDING PHYSICIAN Internal Medicine Hematology & Oncology; FAMILY PHYSICIAN Internal Medicine
DX: C83.31 Diffuse large B-cell lymphoma, lymph nodes of head, face, and neck (principal)
CPT/HCPCS: 36415; 80053; 83615; 84550; 85025

== ENCOUNTER 2025-07-08 08:15 | Outpatient (RCR) | payer MEDICARE, OTHER, SELFPAY ==
[2025-07-08 08:50] VITALS: BP 122/74
[2025-07-08] MEDS: BENADRYL 25 MG PO (09:05)
[2025-07-08] MEDS: TYLENOL 650 MG PO (09:05)
[2025-07-08 09:17] VITALS: BP 122/74
[2025-07-08 09:38] VITALS: BP 142/70
[2025-07-08 10:31] VITALS: BP 108/76
== END 2025-08-01 23:59 | disposition home or self-care (01) ==
LOC: OID 08:15
PROVIDERS: ATTENDING PHYSICIAN Internal Medicine Hematology & Oncology; FAMILY PHYSICIAN Internal Medicine
DX: C83.31 Diffuse large B-cell lymphoma, lymph nodes of head, face, and neck (principal)
CPT/HCPCS: 36430; P9073

== ENCOUNTER → 2025-07-14 11:53 | Outpatient (REF) | payer MEDICARE, OTHER, SELFPAY ==
[2025-07-14 15:47] LABS: Hematocrit 35.6 % (37.0-47.0); Hemoglobin 11.4 g/dL (12.0-16.0); Mean Corp Hgb Conc. 32.0 g/dL (33.0-37.0); Mean Corpuscular Volume 108.9 fL (81.0-99.0); Nucleated Red Blood Cells % 0 %; Platelet Count 155 10^3/uL (130-400); Red Cell Dist. Width 17.7 % (11.5-14.5)
[2025-07-14 16:06] LABS: ALT (SGPT) 22 U/L (0-35); AST (SGOT) 21 U/L (14-36); Albumin 4.1 g/dl (3.5-5.0); Alkaline Phosphatase 175 U/L (38-126); Blood Urea Nitrogen 16 mg/dl (7-17); Calcium 9.1 mg/dl (8.4-10.2); Carbon Dioxide 31 mmol/L (22-30); Chloride 97 mmol/L (98-107); Glucose 87 mg/dl (70-99); LDH 227 U/L (120-246); Potassium 4.4 mmol/L (3.5-5.1); Sodium 130 mmol/L (135-145); Total Protein 6.6 g/dl (6.3-8.2); Uric Acid 3.5 mg/dl (2.5-6.2); eGFR > 60.00
== END ==
LOC: HWLAB 11:53
PROVIDERS: ATTENDING PHYSICIAN Internal Medicine Hematology & Oncology; FAMILY PHYSICIAN Internal Medicine
DX: C83.31 Diffuse large B-cell lymphoma, lymph nodes of head, face, and neck (principal)
CPT/HCPCS: 36415; 80053; 83615; 84550; 85025

== ENCOUNTER → 2025-07-21 11:15 | Outpatient (REF) | payer MEDICARE, OTHER, SELFPAY ==
[2025-07-21 15:24] LABS: Hematocrit 36.3 % (37.0-47.0); Hemoglobin 11.6 g/dL (12.0-16.0); Mean Corp Hgb Conc. 32.0 g/dL (33.0-37.0); Mean Corpuscular Volume 109.7 fL (81.0-99.0); Nucleated Red Blood Cells % 0 %; Platelet Count 193 10^3/uL (130-400); Red Cell Dist. Width 16.4 % (11.5-14.5)
[2025-07-21 15:47] LABS: ALT (SGPT) 15 U/L (0-35); AST (SGOT) 20 U/L (14-36); Albumin 4.0 g/dl (3.5-5.0); Alkaline Phosphatase 114 U/L (38-126); Blood Urea Nitrogen 16 mg/dl (7-17); Calcium 9.2 mg/dl (8.4-10.2); Carbon Dioxide 31 mmol/L (22-30); Chloride 96 mmol/L (98-107); Glucose 89 mg/dl (70-99); LDH 209 U/L (120-246); Potassium 4.2 mmol/L (3.5-5.1); Sodium 131 mmol/L (135-145); Total Protein 6.5 g/dl (6.3-8.2); Uric Acid 2.7 mg/dl (2.5-6.2); eGFR > 60.00
== END ==
LOC: HWLAB 11:15
PROVIDERS: ATTENDING PHYSICIAN Internal Medicine Hematology & Oncology; FAMILY PHYSICIAN Internal Medicine
DX: C83.31 Diffuse large B-cell lymphoma, lymph nodes of head, face, and neck (principal)
CPT/HCPCS: 36415; 80053; 83615; 84550; 85025

== ENCOUNTER → 2025-08-02 11:21 | Outpatient (REF) | payer MEDICARE, OTHER, SELFPAY ==
[2025-08-02 12:50] LABS: Urine Character Cloudy (Clear)
[2025-08-02 12:51] LABS: Hematocrit 37.2 % (37.0-47.0); Hemoglobin 11.8 g/dL (12.0-16.0); Mean Corp Hgb Conc. 31.7 g/dL (33.0-37.0); Mean Corpuscular Volume 108.8 fL (81.0-99.0); Nucleated Red Blood Cells % 0 %; Platelet Count 198 10^3/uL (130-400); Red Cell Dist. Width 15.0 % (11.5-14.5)
[2025-08-02 12:58] LABS: Urine Squamous Cell 0-2 /LPF (Few); Urine White Cell >100 /HPF (0-5)
[2025-08-02 13:17] LABS: ALT (SGPT) 17 U/L (0-35); AST (SGOT) 22 U/L (14-36); Albumin 4.1 g/dl (3.5-5.0); Alkaline Phosphatase 103 U/L (38-126); Blood Urea Nitrogen 22 mg/dl (7-17); Calcium 9.2 mg/dl (8.4-10.2); Carbon Dioxide 31 mmol/L (22-30); Chloride 96 mmol/L (98-107); Glucose 83 mg/dl (70-99); LDH 198 U/L (120-246); Potassium 4.5 mmol/L (3.5-5.1); Sodium 131 mmol/L (135-145); Total Protein 6.6 g/dl (6.3-8.2); Uric Acid 2.8 mg/dl (2.5-6.2); eGFR > 60.00
== END ==
LOC: REG 11:21
PROVIDERS: ATTENDING PHYSICIAN Internal Medicine Hematology & Oncology
DX: C83.31 Diffuse large B-cell lymphoma, lymph nodes of head, face, and neck (principal); N39.0 Urinary tract infection, site not specified
CPT/HCPCS: 36415; 80053; 81003; 81015; 83615; 84550; 85025; 87077; 87086; 87186